=== PATIENT | female | born 1995 | race Caucasian/White ===

== ENCOUNTER 2018-03-01 08:24 | Outpatient (CLI) | payer BC | END 2018-03-01 08:25 | disposition home or self-care (01) | LOC: DTY/OP 08:24 | PROVIDERS: ATTEND Surgery | DX: I47.1 Supraventricular tachycardia (principal) | CPT/HCPCS: 97802 ==

== ENCOUNTER 2018-03-30 13:53 | Outpatient (CLI) | payer BC | END 2018-03-30 13:54 | disposition home or self-care (01) | LOC: DTY/OP 13:53 | PROVIDERS: ATTEND Surgery | DX: I47.1 Supraventricular tachycardia (principal) | CPT/HCPCS: 97802 ==

== ENCOUNTER 2018-05-01 08:34 | Outpatient (CLI) | payer BC | END 2018-05-01 08:35 | disposition home or self-care (01) | LOC: DTY/OP 08:34 | PROVIDERS: ATTEND Surgery | DX: I47.1 Supraventricular tachycardia (principal); Z98.84 Bariatric surgery status | CPT/HCPCS: 97802 ==

== ENCOUNTER 2018-05-22 18:26 | Emergency (ER) | payer BC ==
[~2018-05-22 18:26] MED LIST: ISOVUE-370 76%-LOCM 1 ML ONE
[2018-05-22 19:09] LABS: #Basophils 0.1 thou/uL (0.0-0.2); #Eosinphils 0.3 thou/uL (0.0-0.7); #Lymphocytes 2.9 thou/uL (1.20-3.40); #Monocytes 0.7 thou/uL (0.11-0.59); #Neutrophils 3.8 thou/uL (1.40-6.50); %Basophils 1.6 % (0.0-1.0); %Eosinophils 3.5 % (0.0-10.0); %Lymphocytes 37.2 % (21.0-51.0); %Monocytes 8.9 % (0.0-10.0); %Neutrophils 48.7 % (42.0-75.0); Hemoglobin 14.7 g/dL (12.0-16.0); Mean Corpuscular HGB CONC 35.2 g/dL (32.0-36.0); Mean Corpuscular Hemoglobin 30.2 pg (27.0-31.0); Mean Corpuscular Volume 85.9 fL (78.0-98.0); Mean Platelet Volume 7.6 fL (7.4-10.4); Platelet Count 251 thou/uL (130-400); RBC Distribution Width 12.7 % (11.5-14.5); Red Blood Cell (RBC) Count 4.87 mill/uL (4.20-5.40); White Blood Cell (WBC) Count 7.9 thou/uL (4.8-10.8)
[2018-05-22 19:14] LABS: Prothrombin Time 13.7 SEC (12.0-14.7)
--- NOTE | 2018-05-22 19:27 | RAD ---
RADIOGRAPH CHEST 1 VIEW: HISTORY: A 22-year-old female with nausea and hematemesis. FINDINGS: There are no air space densities, pulmonary edema, pneumothorax, or cardiomegaly. The lateral costop hrenic angles are sharp. IMPRESSION: No acute cardiopulmonary findings. clotilde [] POS: [facility]
[2018-05-22 19:29] LABS: ALT (SGPT) 15 U/L (8-55); AST (SGOT) 12 U/L (5-34); Alkaline Phosphatase 90 U/L (40-150); Anion Gap 11 mmol/L (10-20); BUN (Urea Nitrogen) 18 mg/dL (7.0-18.7); Bilirubin, Total 0.4 mg/dL (0.2-1.2); Calc. Creatinine Clearance 0 mL/min (70-130); Calcium 8.8 mg/dL (7.8-10.44); Carbon Dioxide 24 mmol/L (22-29); Chloride 107 mmol/L (98-107); Estimated GFR-MDRD 82; Globulin 2.9 g/dL (2.4-3.5); Glucose 109 mg/dL (70-105); Lipase 25 U/L (8-78); Protein, Total 6.9 g/dL (6.0-8.3); Sodium 138 mmol/L (136-145)
[2018-05-22] MEDS ORDERED: Ondansetron HCl/PF 4 MG/2 ML Vial ONE (19:29)
[2018-05-22 19:38] LABS: BHCG - Serum Negative (NEGATIVE); Pregs Control Background? CLEAR/WHITE (CLR/WHITE); Pregs Control Bar Appear? YES (CONTROL BAR)
[2018-05-22] MEDS ORDERED: Metoclopramide HCl 10 MG/2 ML VIAL ONE (20:12)
[2018-05-22] MEDS ORDERED: Dexamethasone 4 mg/ml Vial ONE (20:13)
[2018-05-22] MEDS ORDERED: Fentanyl 100 MCG/2 ML VIAL ONE (20:33)
[2018-05-22 20:34] LABS: Bilirubin Negative (Negative); Blood, Urine Negative (Negative); Clarity CLEAR (Clear); Glucose, Urine (Dipstick) Negative (Negative); Leukocyte Negative (Negative); Nitrite Negative (Negative); Protein, Urine (Dipstick) Negative (Neg-Trace); Specific Gravity, Urine 1.027 (1.002-1.036); pH, Urine 6.5 (5.0-9.0)
[2018-05-22 20:35] LABS: Pregnancy Test - Urine (BHCG) Negative (Negative); Pregu Control Background? CLEAR/WHITE (CLR/WHITE); Pregu Control Bar Appear? YES (CONTROL BAR); Specific Gravity 1.027 (1.002-1.036)
--- NOTE | 2018-05-22 20:35 | CT ---
CT BRAIN NONCONTRAST: HISTORY: A 22-year-old female with headache, nausea, and emesis. FINDINGS: There is no midline shift or any other mass effect. There is no evidence of acute intracranial hemor rhage, large cortical infarct, obstructive hydrocephalus, or extraaxial fluid collection. The calvar ium is intact. IMPRESSION: No acute intracranial findings. jn [] POS: [facility]
[2018-05-22] MEDS ORDERED: Glycopyrrolate 0.2 MG/ML 5 ML SYRINGE SLOW IVP SCH (21:00)
--- NOTE | 2018-05-22 22:13 | CT ---
CT ABDOMEN WITH CONTRAST CT PELVIS WITH CONTRAST: 05/22/2018 9:31 p.m. HISTORY: A 22-year-old female with generalized abdominal pain. TECHNIQUE: IV injection of iodinated contrast media: Administered. Oral contrast media: Not administered. FINDINGS: Liver: Normal. Spleen: Normal. Pancreas: Normal. Adrenals: Normal. Kidneys: Normal. Ureters: No dilation. Bladder: No pathology identified. Abdominal aorta: No aneurysm or dissection. Small bowel: No dilation. Colon: No adjacent fat stranding. Appendix: Normal. Free air: None. Free fluid: None. IMPRESSION: Normal. clotilde [] POS: [facility]
== END 2018-05-22 22:30 | disposition home or self-care (01) ==
LOC: ERS 18:26
DX: K22.6 Gastro-esophageal laceration-hemorrhage syndrome (principal); R51 Headache; F41.9 Anxiety disorder, unspecified; F32.9 Major depressive disorder, single episode, unspecified; Z79.899 Other long term (current) drug therapy
CPT/HCPCS: 36415; 70450; 71045; 74177; 80053; 81003; 81025; 83690; 84703; 85025; 85610; 86850; 86900; 86901; 93005; 96361; 96365; 96366; 96375; J1100; J2405; J2765; J3010

== ENCOUNTER 2018-05-30 15:00 | Inpatient (IN) | payer BC ==
[2018-06-01] MEDS ORDERED: Heparin 5,000 UNITS/ML VIAL ONE (08:58)
[2018-06-01] MEDS ORDERED: CEFAZOLIN/Water 2 GM/20 ML SYRINGE ONE (08:58)
[2018-06-01] MEDS ORDERED: Bupivacaine/Epinephrine 0.25% 30 ML VIAL ONE (09:16)
[2018-06-01] MEDS ORDERED: Fentanyl 100 MCG/2 ML VIAL ONE (09:32)
[2018-06-01] MEDS ORDERED: Midazolam HCl 2 mg/2 ml Vial ONE ×2 (09:32)
[2018-06-01] MEDS ORDERED: HYDROmorphone 2 MG/ML VIAL ONE ×2 (09:33→11:05)
[2018-06-01] MEDS ORDERED: Lidocaine 1% (PF) 30 ML VIAL ONE (09:33)
[2018-06-01] MEDS ORDERED: HYDROmorphone 10 mg/100 ml CADD IVPB PRN (09:37)
[2018-06-01] MEDS ORDERED: diphenhydrAMINE 25 MG CAP PO PRN (09:37)
[2018-06-01] MEDS ORDERED: Ondansetron HCl/PF 4 MG/2 ML Vial IVP PRN ×3 (09:37→10:43)
[2018-06-01] MEDS ORDERED: HYDROmorphone 2 MG/ML VIAL SLOW IVP PRN (09:37)
[2018-06-01] MEDS ORDERED: diphenhydrAMINE 50 MG/ML VIAL IM PRN (09:37)
[2018-06-01] MEDS ORDERED: Promethazine HCl 25 MG/ML VIAL SLOW IVP PRN (09:37)
[2018-06-01] MEDS ORDERED: Zolpidem Tartrate 5 MG TAB PO PRN (09:37)
[2018-06-01] MEDS ORDERED: Promethazine HCl 25 MG/ML VIAL IM PRN ×3 (09:37→10:43)
[2018-06-01] MEDS ORDERED: Naloxone HCl 0.4 mg/ml Vial IV PRN (09:37)
[2018-06-01] MEDS ORDERED: Communication Order-Pharmacy FS SCH (09:45)
[2018-06-01] MEDS ORDERED: hydrALAZINE 20 MG/ML VIAL SLOW IVP PRN (10:43)
[2018-06-01] MEDS ORDERED: Dextrose 5% in Water 1,000 ML IV PRN (10:43)
[2018-06-01] MEDS ORDERED: Dextrose 50% Abboject 50 ML SYRINGE SLOW IVP PRN (10:43)
[2018-06-01] MEDS ORDERED: Hydrocodone-Acetamin 15 ML UDCUP PO PRN (10:43)
[2018-06-01] MEDS ORDERED: diphenhydrAMINE 50 MG/ML VIAL IVP PRN (10:43)
[2018-06-01] MEDS ORDERED: Lorazepam 2 MG/ML VIAL SLOW IVP PRN (10:45)
[2018-06-01] MEDS ORDERED: Dexamethasone 20 MG/5 ML VIAL ONE (11:00)
[2018-06-01] MEDS ORDERED: PHENYLEPHRINE-NS 100 MCG/ML 10 ML SYRINGE ONE (11:00)
[2018-06-01] MEDS ORDERED: Ketorolac Tromethamine 30 MG/ML VIAL ONE (11:00)
[2018-06-01] MEDS ORDERED: Lidocaine 1% PF 5 ML VIAL ONE (11:00)
[2018-06-01] MEDS ORDERED: ePHEDrine/0.9% NaCl/PF SYRINGE 50 mg/10 ml ONE (11:00)
[2018-06-01] MEDS ORDERED: Ondansetron HCl/PF 4 MG/2 ML Vial ONE ×2 (11:00→11:05)
[2018-06-01] MEDS ORDERED: PROPOFOL 200 MG/20 ML VIAL ONE (11:00)
[2018-06-01] MEDS ORDERED: Glycopyrrolate 0.2 MG/ML 5 ML SYRINGE ONE (11:00)
[2018-06-01] MEDS ORDERED: Promethazine HCl 25 MG/ML VIAL ONE (11:13)
[2018-06-01 15:18] VITALS: BMI 35.5
[2018-06-01] MEDS: Ketorolac Tromethamine 30 MG/ML VIAL IVP SCH ×3 (16:25→23:33)
[2018-06-01] MEDS: Acetaminophen 1,000 MG in Premix Bag 1 BAG IVPB SCH ×3 (16:25→23:34)
[2018-06-01] MEDS: D5 1/2 NS w/20 mEq KCL 1,000 ML IV SCH ×2 (16:25→23:35)
[2018-06-01] MEDS: CEFAZOLIN/Water 2 GM/20 ML SYRINGE SLOW IVP SCH (18:39)
[2018-06-02] MEDS: CEFAZOLIN/Water 2 GM/20 ML SYRINGE SLOW IVP SCH (01:43)
[2018-06-02] MEDS: diphenhydrAMINE 50 MG/ML VIAL IVP PRN ×5 (02:10→15:56)
[2018-06-02] MEDS ORDERED: Clopidogrel Bisulfate 75 MG TAB ONE (05:12)
[2018-06-02] MEDS: Ketorolac Tromethamine 30 MG/ML VIAL IVP SCH ×2 (05:18→11:15)
[2018-06-02] MEDS: Acetaminophen 1,000 MG in Premix Bag 1 BAG IVPB SCH ×2 (05:19→11:05)
[2018-06-02] MEDS: D5 1/2 NS w/20 mEq KCL 1,000 ML IV SCH ×2 (05:33→11:05)
[2018-06-02 05:52] LABS: #Lymphocytes 1.8 thou/uL (1.20-3.40); #Neutrophils 9.1 thou/uL (1.40-6.50); %Eosinophils 0.1 % (0.0-10.0); %Lymphocytes 15.2 % (21.0-51.0); %Monocytes 8.4 % (0.0-10.0); %Neutrophils 76.3 % (42.0-75.0); Hemoglobin 12.7 g/dL (12.0-16.0); Mean Corpuscular HGB CONC 33.5 g/dL (32.0-36.0); Mean Corpuscular Hemoglobin 29.6 pg (27.0-31.0); Mean Corpuscular Volume 88.5 fL (78.0-98.0); Mean Platelet Volume 7.8 fL (7.4-10.4); Platelet Count 285 thou/uL (130-400); RBC Distribution Width 12.6 % (11.5-14.5); Red Blood Cell (RBC) Count 4.28 mill/uL (4.20-5.40); White Blood Cell (WBC) Count 11.9 thou/uL (4.8-10.8)
[2018-06-02 05:59] LABS: Anion Gap 13 mmol/L (10-20); BUN (Urea Nitrogen) 7 mg/dL (7.0-18.7); Calc. Creatinine Clearance 184 mL/min (70-130); Calcium 8.6 mg/dL (7.8-10.44); Carbon Dioxide 24 mmol/L (22-29); Chloride 103 mmol/L (98-107); Estimated GFR-MDRD Greater than 90; Glucose 103 mg/dL (70-105); Potassium 3.5 mmol/L (3.5-5.1); Sodium 136 mmol/L (136-145)
[2018-06-02] MEDS ORDERED: Enoxaparin Sodium 40 MG/0.4 ML SYRINGE SC SCH (09:00)
[2018-06-02] MEDS ORDERED: Pantoprazole 40 MG VIAL IVP SCH (09:00)
--- NOTE | 2018-06-02 10:30 | RAD ---
ESOPHAGRAM: HISTORY: Bariatric surgery. FINDINGS: Single column contrast evaluation shows postoperative changes of the stomach consistent with gastric sleeve procedure. There is no evidence of obstruction or leak. Fluoro time 0.2 minutes. POS: [facility]
[2018-06-02 17:12] VITALS: BP 121/74; TEMP 98.4
--- NOTE | 2018-06-02 17:49 | DIS ---
DISCHARGE DIAGNOSIS: Morbid obesity. PROCEDURES DURING ADMISSION: Laparoscopic sleeve gastrectomy, intraoperative esophagogastroscopy, po stoperative Gastrografin swallow. HOSPITAL COURSE: The patient was admitted, taken to the operating room and underwent a laparoscopic sleeve gastrectomy. Postoperatively, she has done well. Her x-ray was fine. She is tolerating liqu ids well. She is discharged home on hydrocodone and Zofran. She will follow up with me in 2 weeks.
--- NOTE | 2018-06-05 13:49 | OP ---
DATE OF PROCEDURE: 06/01/2018 PREOPERATIVE DIAGNOSIS: Morbid obesity. SURGEON: David Mauricio M.D. PROCEDURE: Laparoscopic sleeve gastrectomy, esophagogastroscopy. INDICATIONS: The patient is a 22-year-old female, morbidly obese, who has attempted multiple weight loss programs without success. FINDINGS: A 38-Togolese bougie used. PROCEDURE IN DETAIL: After informed consent was obtained, the patient was taken to the operating honorio m and given general endotracheal anesthesia. She was placed in the supine position. The abdomen was prepped and draped in usual fashion. Local anesthesia infiltrated subcutaneously and deep. A 12 mm incision was performed approximately 8 inches above the xiphoid slightly to the left. Veress needle inserted. Drop test performed. Pneumoperitoneum was created to a volume of 2 liters of carbon diox paresh. Utilizing a bladeless 12 mm trocar and 0 degree laparoscope, direct visual entry in the abdomin al cavity was performed. Pneumoperitoneum was created to a pressure of 15 mmHg and the patient place d in steep reverse Trendelenburg position. Nathansen liver retractor inserted. Left lobe of liver r etracted superiorly. Pylorus identified a 12 mm port placed on the right beneath it and two 12s plac ed left subcostal. The omentum was taken off the greater curvature 5 cm from the pylorus utilizing t he LigaSure. Short gastrics divided with the LigaSure and left crura defined with LigaSure. A 38-Fr ench bougie inserted directed into the antrum. The linear 60 mm green load stapler used to divide th e antrum to the bougie, gold load along the bougie, and a series of blues through the angle of His. Intraoperative endoscopy was performed. The video endoscope inserted under direct vision and advance d into the sleeve. Staple line inspected. There was no bleeding. Staple line then tested by inflat ing the new stomach with pressurized air under water. There was no air leak. Stomach decompressed. Scope removed. The remnant stomach removed from the abdomen through the left lateral port site. Th e fascia closed with 0 Vicryl suture and the GraNee needle. Trocars and retractors removed. The ski n closed with interrupted 4-0 Rapide. Dermabond applied. The patient tolerated the procedure well a nd was transferred to recovery in good condition. Sponge and needle count verified correct x2.
== END 2018-06-02 16:56 | disposition home or self-care (01) | DRG 621 ==
LOC: SURG A 06-01 07:53 → SJJU 06-01 12:15 → SURG A 06-01 12:29 → 2NO 06-01 14:30
PROVIDERS: ADMIT Surgery; ATTEND Surgery
PROC: 0DB64Z3 Excision of Stomach, Percutaneous Endoscopic Approach, Vertical (ICD-10-PCS; principal; 2018-06-01)
PROC: 0DJ08ZZ Inspection of Upper Intestinal Tract, Via Natural or Artificial Opening Endoscopic (ICD-10-PCS; 2018-06-01)
DX: E66.01 Morbid (severe) obesity due to excess calories (principal); Z68.35 Body mass index [BMI] 35.0-35.9, adult
CPT/HCPCS: 36415; 74241; 80048; 83036; 85025; 88307; 88312; 93005; 93010; 94640; C9113; J0131; J1100; J1170; J1200; J1644; J1650; J1885; J2001; J2250; J2405; J2550; J2704; J3010; J7620

== ENCOUNTER 2018-05-31 15:16 | Outpatient (CLI) | payer BC | END 2018-05-31 15:17 | disposition home or self-care (01) | LOC: LABBT 15:16 | PROVIDERS: ATTEND Surgery | DX: Z01.818 Encounter for other preprocedural examination (principal); E66.01 Morbid (severe) obesity due to excess calories | CPT/HCPCS: 83036; 93005; 93010 ==

== ENCOUNTER 2018-06-03 17:04 | Emergency (ER) | payer BC ==
[~2018-06-03 17:04] MED LIST changes: -ISOVUE-370 76%-LOCM 1 ML ONE; +Iopamidol 370 76% 100 ML VIAL ONE
[2018-06-03] MEDS ORDERED: Ondansetron HCl/PF 4 MG/2 ML Vial ONE ×2 (17:27→19:47)
[2018-06-03 17:43] LABS: Eosinophils 8 % (0-10); Hemoglobin 13.1 g/dL (12.0-16.0); Lymphocytes 23 % (21-51); MDiff Complete? YES; Mean Corpuscular HGB CONC 33.6 g/dL (32.0-36.0); Mean Corpuscular Hemoglobin 28.7 pg (27.0-31.0); Mean Corpuscular Volume 85.5 fL (78.0-98.0); Mean Platelet Volume 8.4 fL (7.4-10.4); Monocytes 2 % (0-10); Neutrophil 63 % (42-75); PLT Morphology Comment Appears Adequate; Platelet Count 224 thou/uL (130-400); RBC Distribution Width 11.7 % (11.5-14.5); Reactive Lymphocytes 4 % (0-10); Red Blood Cell (RBC) Count 4.55 mill/uL (4.20-5.40); White Blood Cell (WBC) Count 10.1 thou/uL (4.8-10.8)
[2018-06-03 17:49] LABS: ALT (SGPT) 25 U/L (8-55); AST (SGOT) 19 U/L (5-34); Albumin 3.7 g/dL (3.5-5.0); Alkaline Phosphatase 69 U/L (40-150); Anion Gap 13 mmol/L (10-20); BUN (Urea Nitrogen) 6 mg/dL (7.0-18.7); Bilirubin, Total 0.9 mg/dL (0.2-1.2); Calc. Creatinine Clearance 0 mL/min (70-130); Calcium 9.1 mg/dL (7.8-10.44); Carbon Dioxide 25 mmol/L (22-29); Chloride 104 mmol/L (98-107); Estimated GFR-MDRD Greater than 90; Globulin 2.8 g/dL (2.4-3.5); Glucose 82 mg/dL (70-105); Lipase 75 U/L (8-78); Potassium 3.7 mmol/L (3.5-5.1); Protein, Total 6.5 g/dL (6.0-8.3); Sodium 138 mmol/L (136-145)
[2018-06-03 19:03] LABS: Bilirubin Negative (Negative); Blood, Urine Trace (Negative); Clarity Slightly Cloudy (Clear); Glucose, Urine (Dipstick) Negative (Negative); Leukocyte Negative (Negative); Nitrite Negative (Negative); Protein, Urine (Dipstick) Negative (Neg-Trace); Specific Gravity, Urine 1.015 (1.005-1.030)
[2018-06-03 19:05] LABS: Pregnancy Test - Urine (BHCG) Negative (Negative); Pregu Control Background? CLEAR/WHITE (CLR/WHITE); Pregu Control Bar Appear? YES (CONTROL BAR); Specific Gravity 1.015 (1.002-1.036)
[2018-06-03 19:06] LABS: Bacteria/HPF 1+ HPF (None Seen); RBC/HPF 0-3 HPF (0-3); WBC/HPF 0-3 HPF (0-3)
[2018-06-03] MEDS ORDERED: Ketorolac Tromethamine 30 MG/ML VIAL ONE (19:47)
--- NOTE | 2018-06-03 19:55 | CT ---
CT ABDOMEN AND PELVIS WITH CONTRAST 06/03/18 HISTORY: Abdominal pain. recent gastric sleeve. COMPARISON: CT abdomen and pelvis 05/22/18. Lung bases are clear. No pericardial effusion. Recent gastric postoperative changes. No free fluid in the abdomen or pelvis. The appendix is visualized and is normal. No dilated loops of large or small bowel. Kidneys are unremarkable. The liver is unremarkable. Gallbl adder is unremarkable. No intrahepatic or extrahepatic biliary dilatation. Pancreas is unremarkable. Aortoiliac contour is normal. IMPRESSION: Expected postoperative changes. No acute intra-abdominal abnormality. POS: [facility]
== END 2018-06-03 20:58 | disposition home or self-care (01) ==
LOC: SCSER 17:04
DX: G89.18 Other acute postprocedural pain (principal); R10.9 Unspecified abdominal pain; K91.870 Postprocedural hematoma of a digestive system organ or structure following a digestive system procedure; I47.1 Supraventricular tachycardia; F41.9 Anxiety disorder, unspecified; F32.9 Major depressive disorder, single episode, unspecified
CPT/HCPCS: 36415; 74177; 80053; 81003; 81015; 81025; 83605; 83690; 85025; 96361; 96374; 96375; 96376; J1885; J2270; J2405

== ENCOUNTER 2018-06-07 11:20 | Day surgery (SDC) | payer BC ==
[2018-06-07] MEDS ORDERED: Multivit, Adult Inj 10 ML VIAL ONE (11:49)
[2018-06-07] MEDS ORDERED: Ondansetron HCl/PF 4 MG/2 ML Vial ONE (12:40)
== END 2018-06-08 13:50 | disposition home or self-care (01) ==
LOC: SCSER/OP 11:20
PROVIDERS: ATTEND Surgery
DX: Z29.8 Encounter for other specified prophylactic measures (principal)
CPT/HCPCS: J2405

== ENCOUNTER 2018-06-19 22:27 | Emergency (ER) | payer BC ==
[2018-06-19] MEDS ORDERED: Ondansetron HCl/PF 4 MG/2 ML Vial ONE (22:52)
[2018-06-19] MEDS ORDERED: Multivit, Adult Inj 10 ML VIAL ONE (22:55)
[2018-06-19] MEDS ORDERED: Metoclopramide HCl 10 MG/2 ML VIAL ONE (23:01)
[2018-06-19] MEDS ORDERED: Famotidine/PF 20 mg/2ml Vial ONE (23:02)
[2018-06-19 23:24] LABS: #Eosinphils 0.1 thou/uL (0.0-0.7); #Lymphocytes 2.3 thou/uL (1.20-3.40); #Monocytes 0.5 thou/uL (0.11-0.59); #Neutrophils 2.9 thou/uL (1.40-6.50); %Basophils 0.6 % (0.0-1.0); %Eosinophils 2.5 % (0.0-10.0); %Lymphocytes 39.3 % (21.0-51.0); %Monocytes 8.7 % (0.0-10.0); %Neutrophils 48.9 % (42.0-75.0); Hemoglobin 13.4 g/dL (12.0-16.0); Mean Corpuscular HGB CONC 34.9 g/dL (32.0-36.0); Mean Corpuscular Hemoglobin 28.9 pg (27.0-31.0); Mean Corpuscular Volume 82.9 fL (78.0-98.0); Mean Platelet Volume 9.4 fL (7.4-10.4); Platelet Count 204 thou/uL (130-400); RBC Distribution Width 11.2 % (11.5-14.5); Red Blood Cell (RBC) Count 4.63 mill/uL (4.20-5.40); White Blood Cell (WBC) Count 5.9 thou/uL (4.8-10.8)
[2018-06-19 23:32] LABS: BHCG - Serum Negative (NEGATIVE); Pregs Control Background? CLEAR/WHITE (CLR/WHITE); Pregs Control Bar Appear? YES (CONTROL BAR)
[2018-06-19 23:40] LABS: ALT (SGPT) 89 U/L (8-55); AST (SGOT) 52 U/L (5-34); Albumin 4.2 g/dL (3.5-5.0); Alkaline Phosphatase 87 U/L (40-150); Anion Gap 15 mmol/L (10-20); BUN (Urea Nitrogen) 15 mg/dL (7.0-18.7); Bilirubin, Total 0.8 mg/dL (0.2-1.2); Calc. Creatinine Clearance 0 mL/min (70-130); Calcium 9.6 mg/dL (7.8-10.44); Carbon Dioxide 23 mmol/L (22-29); Chloride 105 mmol/L (98-107); Estimated GFR-MDRD 83; Globulin 2.9 g/dL (2.4-3.5); Glucose 75 mg/dL (70-105); Lipase 75 U/L (8-78); Magnesium 2.2 mg/dL (1.6-2.6); Phosphorus 3.1 mg/dL (2.3-4.7); Potassium 3.7 mmol/L (3.5-5.1); Protein, Total 7.1 g/dL (6.0-8.3); Sodium 139 mmol/L (136-145)
[2018-06-20] MEDS ORDERED: Acetaminophen 500 MG TAB ONE (01:05)
== END 2018-06-20 03:50 | disposition home or self-care (01) ==
LOC: SCSER 22:27
DX: E86.0 Dehydration (principal); R10.12 Left upper quadrant pain; I47.1 Supraventricular tachycardia; F32.9 Major depressive disorder, single episode, unspecified; F41.9 Anxiety disorder, unspecified; J45.909 Unspecified asthma, uncomplicated
CPT/HCPCS: 80053; 83690; 83735; 84100; 84703; 85025; J2405; J2765; J7620; S0028

== ENCOUNTER 2018-06-20 21:17 | Inpatient (IN) | payer BC ==
[2018-06-20] MEDS ORDERED: Metoclopramide HCl 10 MG/2 ML VIAL ONE (22:43)
[2018-06-20] MEDS ORDERED: Ondansetron HCl/PF 4 MG/2 ML Vial ONE (22:43)
[2018-06-20 22:57] LABS: #Basophils 0.1 thou/uL (0.0-0.2); #Eosinphils 0.1 thou/uL (0.0-0.7); #Lymphocytes 1.7 thou/uL (1.20-3.40); #Monocytes 0.4 thou/uL (0.11-0.59); #Neutrophils 2.9 thou/uL (1.40-6.50); %Basophils 1.4 % (0.0-1.0); %Eosinophils 2.6 % (0.0-10.0); %Lymphocytes 32.7 % (21.0-51.0); %Neutrophils 55.2 % (42.0-75.0); Hemoglobin 12.8 g/dL (12.0-16.0); Mean Corpuscular HGB CONC 34.5 g/dL (32.0-36.0); Mean Corpuscular Hemoglobin 29.9 pg (27.0-31.0); Mean Corpuscular Volume 86.8 fL (78.0-98.0); Mean Platelet Volume 9.2 fL (7.4-10.4); Platelet Count 200 thou/uL (130-400); RBC Distribution Width 12.5 % (11.5-14.5); Red Blood Cell (RBC) Count 4.29 mill/uL (4.20-5.40); White Blood Cell (WBC) Count 5.2 thou/uL (4.8-10.8)
[2018-06-20] MEDS ORDERED: diphenhydrAMINE 50 MG/ML VIAL IVP SCH (23:00)
[2018-06-20 23:16] LABS: ALT (SGPT) 70 U/L (8-55); AST (SGOT) 39 U/L (5-34); Albumin 3.8 g/dL (3.5-5.0); Alkaline Phosphatase 80 U/L (40-150); Anion Gap 13 mmol/L (10-20); BUN (Urea Nitrogen) 6 mg/dL (7.0-18.7); Bilirubin, Total 0.6 mg/dL (0.2-1.2); Calc. Creatinine Clearance 0 mL/min (70-130); Calcium 9.2 mg/dL (7.8-10.44); Carbon Dioxide 20 mmol/L (22-29); Chloride 108 mmol/L (98-107); Estimated GFR-MDRD Greater than 90; Globulin 2.7 g/dL (2.4-3.5); Glucose 75 mg/dL (70-105); Lipase 59 U/L (8-78); Potassium 3.9 mmol/L (3.5-5.1); Protein, Total 6.5 g/dL (6.0-8.3); Sodium 137 mmol/L (136-145)
[2018-06-21 00:01] LABS: Bilirubin Negative (Negative); Blood, Urine Negative (Negative); Clarity CLEAR (Clear); Glucose, Urine (Dipstick) Negative (Negative); Leukocyte Negative (Negative); Nitrite Negative (Negative); Protein, Urine (Dipstick) Negative (Neg-Trace); Specific Gravity, Urine 1.005 (1.002-1.036); pH, Urine 5.5 (5.0-9.0)
[2018-06-21] MEDS ORDERED: Ondansetron HCl/PF 4 MG/2 ML Vial IVP PRN (01:19)
[2018-06-21] MEDS ORDERED: Ondansetron ODT 4 MG TAB SL PRN (01:19)
[2018-06-21] MEDS ORDERED: Acetaminophen 325 MG TAB PO PRN (01:19)
[2018-06-21] MEDS ORDERED: Acetaminophen 650 MG in Premix Bag 1 BAG IVPB PRN (01:21)
[2018-06-21] MEDS: Lactated Ringer's 1,000 ML IV SCH ×2 (01:55→09:57)
[2018-06-21 07:21] VITALS: BMI 32.0
[2018-06-21] MEDS ORDERED: Multivit, Adult Inj 10 ML VIAL IV SCH (07:45)
[2018-06-21] MEDS ORDERED: Multivitamins, Adult 10 ML in Sodium Chloride 0.9% 500 ML IV SCH (08:00)
[2018-06-21] MEDS: Ketorolac Tromethamine 30 MG/ML VIAL IVP PRN ×2 (09:57→19:11)
[2018-06-21] MEDS: Promethazine HCl 25 MG/ML VIAL IM/IV PRN (10:05)
[2018-06-21] MEDS ORDERED: Fat Emulsion 250 ML IVPB PRN (11:51)
[2018-06-21] MEDS: D5W-AA 4.25% with LYTES 1,000 ML IV SCH ×2 (12:39→20:58)
[2018-06-21] MEDS ORDERED: Iopamidol 300 61% 30 ML VIAL ONE (12:56)
--- NOTE | 2018-06-21 14:00 | RAD ---
BARIUM SWALLOW ESOPHAGRAM 06/21/18 HISTORY: Patient is two weeks status post gastric sleeve/bariatric surgery. Patient is having nausea. EXPOSURE: 0.9 minutes. 28.067 Gy*cm2. FINDINGS: Initial supervisor ornamental ironworking chest radiograph demonstrates normal cardiac silhouette. The lungs and pleural spaces a re clear. No pneumothorax or osseous abnormalities. The patient is administered a total of 30 mL of g astrografin. Gastrografin passes without difficulty. There is no evidence of leak of extravasation. G astrografin opacifies multiple loops of small bowel. Postprocedure supine and upright radiograph demonstrate gastrografin in the residual stomach. Multipl e contrast filled loops of small bowel are noted. No evidence of leak of extravasation. No evidence o f obstruction. IMPRESSION: No evidence of leak or extravasation. POS: [facility]
[2018-06-21] MEDS: Metoclopramide HCl 10 MG/2 ML VIAL IVP SCH ×2 (14:01→20:58)
[2018-06-22] MEDS: Metoclopramide HCl 10 MG/2 ML VIAL IVP SCH (05:23)
[2018-06-22] MEDS: D5W-AA 4.25% with LYTES 1,000 ML IV SCH (05:25)
[2018-06-22 08:05] VITALS: BP 103/57; TEMP 98.2
[2018-06-22] MEDS: Promethazine HCl 25 MG/ML VIAL IM/IV PRN (09:05)
--- NOTE | 2018-06-22 11:55 | DIS ---
DATE OF ADMISSION: 06/20/2018 DATE OF DISCHARGE: 06/22/2018 DISCHARGE DIAGNOSES: Nausea, vomiting and dehydration. PROCEDURES DURING ADMISSION: Upper GI series. HOSPITAL COURSE: The patient was admitted, given IV fluids and multivitamins. A barium swallow was done, showed no abnormality. It was noted that she had been on Reglan prior to her sleeve and she santamaria s not been taking that, so we started her back on the IV Reglan and she feels 100% better. She is to lerating liquids. She is ready to go home, she says. DISCHARGE MEDICATIONS: Reglan 10 mg p.o. t.i.d. before meals and Phenergan 25 p.o. q.4 p.r.n. FOLLOWUP: Follow up with me in 2 weeks.
--- NOTE | 2018-06-23 14:04 | HP ---
CHIEF COMPLAINT: Nausea, vomiting. HISTORY OF PRESENT ILLNESS: This is a 22-year-old female who underwent a sleeve gastrectomy on 06/01. She has been to the ER 4 times since then, the , , the and 2nd. She complains of dehydration, nausea, headache, left-sided abdominal pain and bilious vomiting. She had a small lizz l movement yesterday. She denies hiccups, shoulder pain. Workup has all been negative. PAST MEDICAL HISTORY: Depression, ADHD, asthma, paroxysmal SVT. PAST SURGICAL HISTORY: Cardiac ablation, right breast cyst excision. ALLERGIES: METOPROLOL and ADHESIVES. MEDICATIONS: Prior to the surgery she was on Zofran, Reglan, Phenergan, Singulair, Vyvanse. SOCIAL HISTORY: She is single. Occasional alcohol, no tobacco. PHYSICAL EXAMINATION: VITAL SIGNS: Temperature 98.1, pulse 61, blood pressure 99/68. GENERAL: She is awake, alert, does not appear to be in any distress. HEENT: No jaundice. LUNGS: Clear. HEART: Regular rate and rhythm. ABDOMEN: Soft, nondistended, nontender. Incisions are healing well. There are no hernias. There i s no evidence of infection. LABORATORY AND X-RAY FINDINGS: Her white count 5.2, H&H 12 and 37, platelet count 200. PT is 13. E lectrolytes are fine. Creatinine 0.7, BUN is 6. She had a CT scan that was unremarkable. PLAN: IV vitamins, Reglan, Phenergan, Toradol. We will keep her n.p.o. for now.
== END 2018-06-22 10:00 | disposition home or self-care (01) | DRG 641 ==
LOC: ERS 21:17 → OBSVTOIN 23:36 → T4-B 23:36
PROVIDERS: ADMIT Surgery; ATTEND Surgery
DX: E86.0 Dehydration (principal); R11.2 Nausea with vomiting, unspecified
CPT/HCPCS: 36415; 74220; 80053; 81003; 83690; 83735; 84100; 84703; 85025; 96365; 96366; 96375; A4216; J1200; J1885; J2405; J2550; J2765; J7050; J7620; S0028

== ENCOUNTER 2018-12-31 08:58 | Day surgery (SDC) | payer BC ==
[2018-12-31] MEDS ORDERED: Levofloxacin 500 mg/D5W 100 ml Premix Bag ONE (09:44)
[2018-12-31] MEDS ORDERED: Fentanyl 100 MCG/2 ML VIAL ONE ×2 (09:44→09:53)
[2018-12-31] MEDS ORDERED: Bupivacaine HCl 0.5%/Epinephrine 1:200,000/PF 30 ml Vial ONE (09:50)
[2018-12-31] MEDS ORDERED: Famotidine/PF 20 mg/2ml Vial ONE (09:54)
[2018-12-31] MEDS ORDERED: HYDROmorphone 2 MG/ML VIAL SLOW IVP PRN (10:47)
[2018-12-31] MEDS ORDERED: Meperidine HCl/PF 25 MG/ML VIAL SLOW IVP PRN (10:47)
[2018-12-31] MEDS ORDERED: Promethazine HCl 25 MG/ML VIAL ONE (11:17)
[2018-12-31] MEDS ORDERED: HYDROcodone/Acetaminophen 5/325 mg Tablet ONE (12:16)
[2018-12-31] MEDS ORDERED: Ondansetron PF 4 MG/2 ML Vial ONE (15:36)
[2018-12-31] MEDS ORDERED: Lidocaine 1% PF 5 ML VIAL ONE (15:36)
[2018-12-31] MEDS ORDERED: Ketorolac Tromethamine 30 MG/ML VIAL ONE (15:36)
[2018-12-31] MEDS ORDERED: Dexamethasone 20 MG/5 ML VIAL ONE (15:36)
[2018-12-31] MEDS ORDERED: Glycopyrrolate 0.2 MG/ML 5 ML SYRINGE ONE (15:36)
[2018-12-31] MEDS ORDERED: PROPOFOL 200 MG/20 ML VIAL ONE (15:36)
[2018-12-31] MEDS ORDERED: Rocuronium Bromide 10 MG/ML (10ML VIAL) ONE (15:36)
--- NOTE | 2019-01-01 11:04 | OP ---
DATE OF PROCEDURE: 12/31/2018 PREOPERATIVE DIAGNOSIS: Severe biliary colic. SURGEON: David Mauricio MD PROCEDURE PERFORMED: Laparoscopic cholecystectomy. INDICATIONS: The patient is a 23-year-old female, recent weight loss after sleeve. She has developed a 4-day history of severe intermittent right upper quadrant pain radiating to back. Ultrasound shows cholelithiasis findings, small caliber cystic duct, large stones. DESCRIPTION OF PROCEDURE: After informed consent was obtained, patient was taken to the operating room and given general endotracheal anesthesia. She was placed in supine position. Abdomen was prepped and draped in usual fashion. Local anesthesia infiltrated subcutaneously and deep and subumbilical incision was performed. Subcu divided sharply, the fascia was grasped, two stay sutures of 0 Vicryl placed through side of midline. Midline incised. Digital palpation revealed no local adhesions. A blunt 12 mm trocar inserted. Pneumoperitoneum was created to a pressure of 15 mmHg. A 0 degree laparoscope inserted and three 5 mm ports were placed subcostally. The gallbladder was grasped and advanced superiorly, peritoneum divided and open to allow dissection of the cystic duct artery and critical view. The artery and duct were triply ligated with hemoclips and divided. The gallbladder removed from its fossa utilizing electrocautery, removed from the abdomen through the umbilical port. Hemostasis assured. Trocars and retractors removed. Fascia closed with interrupted 0 Vicryl suture. The skin closed with interrupted 4-0 Rapide. Dermabond applied. The patient tolerated the procedure well, transferred to Recovery in good condition. Sponge and needle count verified correct x2. Job ID: [id number]
== END 2018-12-31 12:55 | disposition home or self-care (01) ==
LOC: SDC 08:58
PROVIDERS: ATTEND Surgery
PROC: 0FT44ZZ Resection of Gallbladder, Percutaneous Endoscopic Approach (ICD-10-PCS; principal; 2018-12-31)
DX: K80.10 Calculus of gallbladder with chronic cholecystitis without obstruction (principal); Z79.3 Long term (current) use of hormonal contraceptives; Z88.8 Allergy status to other drugs, medicaments and biological substances; Z91.048 Other nonmedicinal substance allergy status; Z98.84 Bariatric surgery status
CPT/HCPCS: 88304; J0131; J0670; J1100; J1885; J1956; J2001; J2405; J2550; J2704; J3010; S0028

== ENCOUNTER 2019-12-01 00:21 | Inpatient (IN) | payer BC ==
[2019-12-01 01:09] LABS: #Eosinphils 0.5 thou/uL (0.0-0.7); #Lymphocytes 2.5 thou/uL (1.20-3.40); #Monocytes 0.6 thou/uL (0.11-0.59); #Neutrophils 2.7 thou/uL (1.40-6.50); %Basophils 0.5 % (0.0-1.0); %Eosinophils 7.3 % (0.0-10.0); %Lymphocytes 39.8 % (21.0-51.0); %Monocytes 9.3 % (0.0-10.0); %Neutrophils 43.2 % (42.0-75.0); Hemoglobin 12.8 g/dL (12.0-16.0); Mean Corpuscular HGB CONC 33.8 g/dL (32.0-36.0); Mean Corpuscular Hemoglobin 30.4 pg (27.0-31.0); Mean Corpuscular Volume 90.1 fL (78.0-98.0); Mean Platelet Volume 8.3 fL (7.4-10.4); Platelet Count 227 thou/uL (130-400); RBC Distribution Width 12.1 % (11.5-14.5); Red Blood Cell (RBC) Count 4.19 mill/uL (4.20-5.40); White Blood Cell (WBC) Count 6.3 thou/uL (4.8-10.8)
[2019-12-01 01:29] LABS: Acetaminophen Less than 6.0 mcg/mL (10.0-30.0); Alcohol Less than 10 mg/dL (Less than 10); Salicylate Less than 8.0 mg/dL (15.0-30.0)
[2019-12-01 01:36] LABS: ALT (SGPT) 9 U/L (8-55); AST (SGOT) 13 U/L (5-34); Albumin 3.9 g/dL (3.5-5.0); Alkaline Phosphatase 65 U/L (40-110); Anion Gap 12 mmol/L (10-20); BUN (Urea Nitrogen) 14 mg/dL (7.0-18.7); Bilirubin, Total 0.3 mg/dL (0.2-1.2); Calc. Creatinine Clearance 0 mL/min (70-130); Calcium 8.9 mg/dL (7.8-10.44); Carbon Dioxide 27 mmol/L (22-29); Chloride 107 mmol/L (98-107); Estimated GFR-MDRD 84; Globulin 2.3 g/dL (2.4-3.5); Glucose 63 mg/dL (70-105); Protein, Total 6.2 g/dL (6.0-8.3); Sodium 142 mmol/L (136-145)
[2019-12-01] MEDS ORDERED: Atropine Sulfate 1 mg/10 ml Syringe ONE (01:57)
[2019-12-01] MEDS ORDERED: Ondansetron PF 4 MG/2 ML Vial IVP PRN (03:31)
[2019-12-01] MEDS ORDERED: Ondansetron ODT 4 MG TAB SL PRN (03:31)
[2019-12-01 03:39] VITALS: BMI 23.9
[2019-12-01] MEDS: Sodium Chloride 0.9% 1,000 ML IV SCH ×2 (04:23→13:01)
[2019-12-01] MEDS ORDERED: Ondansetron ODT 4 MG TAB PO PRN (08:19)
[2019-12-01] MEDS ORDERED: LINZESS 145 MG PO SCH (09:00)
[2019-12-01] MEDS ORDERED: FLUoxetine HCl 20 MG CAP PO SCH (09:00)
[2019-12-01] MEDS ORDERED: FLU VACC QS2019-20(6MOS UP)/PF 60 MCG/0.5 ML SYRINGE IM ONE (09:00)
[2019-12-01] MEDS: FLUoxetine HCl 20 MG CAP PO SCH (10:13)
[2019-12-01] MEDS: Famotidine 20 MG TAB PO SCH (10:13)
--- NOTE | 2019-12-01 13:27 | CON ---
DATE OF CONSULTATION: 12/01/2019 REASON FOR CONSULTATION: Bradycardia. HISTORY OF PRESENT ILLNESS: Ms. Zapata is a 24-year-old woman, who has been seen and evaluated by Dr. Ignacio Aguillon. She has a history of bradycardia in the past. She had an implantable loop recorder placed in June in [place]. She states she had a recent syncopal episode. This occurred yesterday in the afternoon. She also tried to take her own life. She took 26 pills including a Vyvanse. She continues to be suicidal. Heart rate has been in the 40s. Implantable loop recorder has not been interrogated. No complaints of chest pain or pressure. She states she has frequent syncopal episodes. She does state she took her heart rate during this syncopal episode and was in the 20s. PAST MEDICAL HISTORY: 1. Previous suicidal attempts. 2. Bradycardia. 3. Recurrent syncope. 4. SVT. 5. Asthma. 6. PVCs. 7. Seizure disorder. SOCIAL HISTORY: No current tobacco, or alcohol use. ALLERGIES: ADHESIVE TAPE, CEFAZOLIN, METOPROLOL. REVIEW OF SYSTEMS: A 10-point review of systems is reviewed as above, otherwise negative. PHYSICAL EXAMINATION: GENERAL: Patient is a pleasant female,who is in no acute distress. The patient appears their stated age. VITAL SIGNS: Blood pressure 100/60, pulse 49, temperature afebrile. NEUROLOGIC: The patient is alert and oriented x3 with no focal neurologic deficits. HEENT: Sclerae without icterus. Mouth has moist mucous membranes with normal pallor. NECK: No JVD. Carotid upstroke brisk. No bruits bilaterally. LUNGS: Clear to auscultation with unlabored respirations. BACK: No scoliosis or kyphosis. CARDIAC: Regular rate and rhythm with normal S1 and S2. No S3 or S4 noted. No significant rubs, murmurs, thrills, or gallops noted throughout the precordium. PMI is not displaced. There is no parasternal heave. ABDOMEN: Soft, nontender, nondistended. No peritoneal signs present. No hepatosplenomegaly. No abnormal striae. EXTREMITIES: 2+ femoral and 2+ dorsalis pedis pulses. No cyanosis, clubbing, or edema. SKIN: No gross abnormalities. PERTINENT LABORATORY DATA: Hemoglobin 12.8, hematocrit 37.8. IMPRESSION: 1. Bradycardia. 2. Syncope. 3. Suicidal ideations. RECOMMENDATIONS: We will interrogate her loop recorder. I would like to see a correlation between syncope yesterday afternoon and heart rate below 40. If so , we therefore recommend pacemaker implantation. She has been told by Dr. Aguillon in the past that pacemaker implantation was likely eminent. We will also review her echo. ADDENDUM: Review of ILR. No significant bradycardia noted on 11/29 during syncope and prior to suicide attempt Pt with bradycardia noted in October with HR in the 30's but noted during non- waking hours. Continue to observe. Job ID: [id number] MTDD
--- NOTE | 2019-12-01 18:50 | CON ---
DATE OF CONSULTATION: 12/01/2019 HISTORY OF PRESENT ILLNESS: Ms. Zapata is 24 years old with history of depression and suicide attempts. She was seen by Cardiology today after suicide attempt by ingesting pills. She claimed to have had a syncopal episode earlier in the day. Her monitor has been interrogated. There is no evidence of bradycardia on her loop recorder, it would correlate during the time where she had a reported syncope. She appears to be stable. Her heart rate is in the 50s, blood pressure has been stable. She is having no respiratory issues. She actually is telling the nurses she wants to go to a psychiatric hospital. PAST MEDICAL HISTORY: Remarkable for asthma and reported seizure disorder. SOCIAL HISTORY: She is a nonsmoker, nondrinker. PHYSICAL EXAMINATION: GENERAL: She is in no distress. VITAL SIGNS: Stable. HEAD AND NECK: Unremarkable. LUNGS: Clear. HEART: Regular rhythm. ABDOMEN: Soft and nontender. EXTREMITIES: Without clubbing, cyanosis, or edema. IMPRESSION: 1. Status post ingestion of multiple different medications, clinically stable at this point in time. 2. History of gastric sleeve. 3. History of lumpectomy. 4. History of cholecystectomy. 5. Status post implantation of a loop recorder with no documented rhythm disturbances prior to her overdose. 6. Multiple drug allergies. She appears to be medically stable. She can be evaluated by [facility] probably tomorrow morning. TIME SPENT: This is a 70-minute consult, 50% of the time spent on the unit coordinating care. TIME SPENT: This is a 70-minute consult, 50% of the time spent on the unit coordinating care. Job ID: [id number] [facility]
[2019-12-01] MEDS: Acetaminophen 325 MG TAB PO PRN (20:28)
[2019-12-01] MEDS ORDERED: Prazosin HCl 1 MG CAP PO SCH (21:00)
[2019-12-01] MEDS ORDERED: Aripiprazole 15 MG TAB PO SCH (21:00)
--- NOTE | 2019-12-02 02:40 | HP ---
CHIEF COMPLAINT ON ADMISSION: Suicide attempt by drug overdose. HISTORY OF PRESENT ILLNESS: The patient is a 24-year-old female who 5 times previously attempted to take her life. She states on this occasion that she and her had an argument that was so intense she felt so upset she did want to go living. She then proceeded to take 30 pills, most of which were clonazepam, but some where Prozac and there are few other pills that she normally takes, all taking in a handful. Her at this point, brought her to the emergency room. On arrival, she was alert and gave a complete history. There were no hallucinations, pain, nausea, vomiting, or diarrhea. She was noted however to have significant bradycardia. She states that this is normal for her. 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 Currently, she has severe anxiety, severe depression and impulsively took this overdose as a response to the significant argument with her . PAST MEDICAL HISTORY: Extensive, as mentioned previously for 5 previous suicide attempts. She has a history of supraventricular tachycardia, asthma, premature ventricular contractions, bradycardia, seizures, GERD, chronic migraines, attention deficit disorder, irritable bowel syndrome, constipation predominant. She also has posttraumatic stress disorder, sleep terrors and bipolar disorder, most recent episode depression. PAST SURGICAL HISTORY: Includes cardiac ablation x2, gastric sleeve surgery 06/01/2018, breast lumpectomy, cholecystectomy, and loop recorder implantation. PSYCHIATRIC HISTORY: As previously noted significant for anxiety, depression, posttraumatic stress disorder. SOCIAL HISTORY: Denies alcohol, drug use or smoking. She is . ALLERGIES: ALLERGIES ARE TO ADHESIVE TAPE, THESE CAUSE RASHES AND LEAVE SCARS, ANCEF, CEFAZOLIN, METOPROLOL, ALL THESE CAUSE SOME ANAPHYLACTIC REACTION. MEDICATIONS ON ADMISSION: Include: 1. Vyvanse 30 mg daily. 2. Emgality 120 mg subcutaneous monthly. 3. Prozac 60 mg daily. 4. Prazosin for night terrors 1 mg at bedtime. 5. Zantac 150 mg b.i.d. 6. Linzess 145 mg daily. 7. Singulair 10 mg daily. 8. Corlanor 5 mg daily. 9. Clonazepam 1 mg p.r.n. panic attacks usually once or twice a week. 10. Lomotil p.r.n. diarrhea. 11. Phenergan p.r.n. nausea. 12. Tramadol p.r.n. migraine. 13. Relpax p.r.n. migraine. 14. Zofran 8 mg p.r.n. nausea. 15. Stool softener. REVIEW OF SYSTEMS: At the time of admission: CONSTITUTIONAL: Denies fever, chills, fatigue. HEENT: Denies drainage or sores in eyes, ears, nose, or throat. CARDIOVASCULAR: Admits to chronic bradycardia, but denies chest pain or palpitations. RESPIRATORY: Denies cough or shortness of breath. GI: Denies nausea, vomiting, or diarrhea at this time. : Denies blood in urine or stool or dysuria. MUSCULOSKELETAL: Denies any pain in joints or muscle groups. SKIN: No new rashes or lesions. NEUROLOGIC: Current trouble with headaches, paresthesias or hypesthesia. HEMOLYMPHATICS: No trouble with lymph node enlargement, swelling, hot flashes. PSYCHIATRIC: Reports severe exacerbation of anxiety and depression with emotional lability and continues to want to end her life currently. PHYSICAL EXAMINATION: VITAL SIGNS: On admission, blood pressure is 114/54, pulse at the 52, respirations 16, temperature 98.2, pain scale of 2, O2 saturation 99% on room air. GENERAL: This is a well-developed, well-nourished, female, alert, oriented, cooperative. HEENT: Normocephalic, atraumatic. Pupils are equal, round, and reactive to light. Extraocular muscles are intact. TMs, nares, and pharynx are clear. NECK: Supple. Trachea midline. No lymphadenopathy. CHEST: Clear to auscultation. HEART: Regular rate and rhythm without murmur, bradycardic. BREASTS: Deferred. ABDOMEN: Soft, nontender without hepatosplenomegaly. : Deferred. EXTREMITIES: Without clubbing, cyanosis, or edema. Symmetrical muscular tone development noted. Range of motion present. SKIN: Without acute rashes or lesions. NEUROLOGIC: Cranial nerves are intact. Gait and cerebellar function normal. Sensory exam are intact. The mental status is significant for anxiety, depression. She continues to want to end her life and agrees that she needs further psychiatric care and a rearrangement of her medication. Her judgment is poor. Her insight is poor. Her memory is intact. Concentration is normal. She is still suicidal and plans to repeat overdose, if given the opportunity. LABORATORY DATA: Lab work thus far, WBC 6.2, hemoglobin 12.8, hematocrit 37.8, platelets at 227. Sodium 142, potassium 4.0, chloride 107, CO2 27, BUN 14, creatinine 0.83 with glucose at 63. Drug screen is unremarkable. ASSESSMENT: 1. Bipolar with major depression features and recent suicide attempt by drug overdose. 2. Recurrent bradycardic episodes with history of syncopal episodes. PLAN: Plan to continue to watch her in IMCU, clear her medically via cardiac evaluation and she continues to be bradycardic, once stable - [facility] evaluation for psychiatric inpatient management. Job ID: [id number] KENNETH
[2019-12-02 04:35] LABS: #Eosinphils 0.4 thou/uL (0.0-0.7); #Lymphocytes 2.6 thou/uL (1.20-3.40); #Monocytes 0.4 thou/uL (0.11-0.59); #Neutrophils 2.2 thou/uL (1.40-6.50); %Basophils 0.8 % (0.0-1.0); %Eosinophils 6.3 % (0.0-10.0); %Lymphocytes 46.7 % (21.0-51.0); %Neutrophils 39.3 % (42.0-75.0); Hemoglobin 11.5 g/dL (12.0-16.0); Mean Corpuscular HGB CONC 32.7 g/dL (32.0-36.0); Mean Corpuscular Hemoglobin 29.7 pg (27.0-31.0); Mean Corpuscular Volume 90.9 fL (78.0-98.0); Mean Platelet Volume 8.7 fL (7.4-10.4); Platelet Count 194 thou/uL (130-400); Red Blood Cell (RBC) Count 3.87 mill/uL (4.20-5.40); White Blood Cell (WBC) Count 5.7 thou/uL (4.8-10.8)
[2019-12-02 04:58] LABS: Anion Gap 8 mmol/L (10-20); BUN (Urea Nitrogen) 12 mg/dL (7.0-18.7); Calc. Creatinine Clearance 105 mL/min (70-130); Calcium 8.3 mg/dL (7.8-10.44); Carbon Dioxide 26 mmol/L (22-29); Chloride 110 mmol/L (98-107); Estimated GFR-MDRD 89; Glucose 81 mg/dL (70-105); Potassium 4.3 mmol/L (3.5-5.1); Sodium 140 mmol/L (136-145)
[2019-12-02] MEDS ORDERED: SPRINTEC 28 PO SCH (09:00)
[2019-12-02] MEDS ORDERED: LO LOESTRIN FE PO SCH (09:00)
[2019-12-02] MEDS ORDERED: LINZESS 145 MG PO SCH (09:00)
[2019-12-02] MEDS: FLUoxetine HCl 20 MG CAP PO SCH (09:32)
[2019-12-02] MEDS: Acetaminophen 325 MG TAB PO PRN ×2 (09:32→16:44)
[2019-12-02] MEDS: Famotidine 20 MG TAB PO SCH (09:32)
--- NOTE | 2019-12-02 12:58 | PDOC.CPN ---
- Subjective Date: 12/02/19 Time: 09:30 Interval history: No overnight events. No pauses on tele. Pulse drops to 40s while sleeping. c/o heartburn - Review of Systems General: denies: fever/chills, weight/appetite/sleep changes, night sweats, fatigue Respiratory: denies: cough, congestion, shortness of breath, exercise intolerance Cardiovascular: denies: chest pain, palpitation, edema, paroxysmal nocturnal dyspnea, orthopnea Gastrointestinal: denies: nausea, vomiting, diarrhea, constipation, abd pain, GI bleeding Musculoskeletal: denies: pain, tenderness, stiffness, swelling, arthritis/ arthralgias Neurological: denies: numbness, syncope, seizure, weakness - Objective Allergies/Adverse Reactions: Allergies Allergy/AdvReac Type Severity Reaction Status Date / Time cefazolin [From Ancef] Allergy Severe Anaphylaxis Verified 06/21/18 07:36 adhesive Allergy Rash Verified 06/21/18 07:36 metoprolol [From Toprol XL] Allergy Anaphylaxis Verified 06/21/18 07:36 Visit Medications: Current Medications Acetaminophen (Tylenol) 650 mg PO Q4H PRN PRN Reason: Headache/Fever or Pain Last Admin: 12/02/19 09:32 Dose: 650 mg Aripiprazole (Abilify) 15 mg PO HS [facility] Last Admin: 12/01/19 20:28 Dose: Not Given Famotidine (Pepcid) 40 mg PO DAILY [facility] Last Admin: 12/02/19 09:32 Dose: 40 mg Fluoxetine HCl (Prozac) 60 mg PO DAILY [facility] Last Admin: 12/02/19 09:32 Dose: 60 mg Ondansetron HCl (Zofran Odt) 4 mg PO Q6H PRN PRN Reason: Nausea/Vomiting Patient's Home Medication (Linzess 145 Mg) 0 each PO DAILY [facility] Last Admin: 12/02/19 09:31 Dose: Not Given Lo Loestrin Fe 0 each PO DAILY [facility] Last Admin: 12/02/19 09:33 Dose: 1 each Prazosin HCl (Minipress) 1 mg PO HS [facility] Last Admin: 12/01/19 20:28 Dose: 1 mg Vital Signs & Weight: Vital Signs Temp Pulse Resp BP Pulse Ox 12/02/19 11:47 98.4 F 50 L 18 110/55 L 97 12/02/19 08:36 97.8 F 53 L 18 104/57 L 94 L 12/02/19 04:20 97.2 F L 50 L 18 104/61 98 Admit Weight 135 lb Weight 135 lb - Physical Exam General: alert & oriented x3, appears well HEENT: mucus membranes moist Neck: supple neck Cardiac: regular rate and rhythm Lungs: clear to auscultation Neuro: grossly intact Abdomen: soft, non-tender Extremities: no clubbing Skin: clear - Labs Result Diagrams: 12/02/19 04:24 12/02/19 04:24 - Assessment/Plan Assessment/Plan: 1. Suicidal attempt 2. Bradycardia Stable rhythm at this time. LINQ in place. Continue monitoring. Will sigh off. Call back if necessary.
[2019-12-02 13:40] LABS: Amphetamine Not Detected (NotDetected); Barbiturates Screen Not Detected (NotDetected); Benzodiazepine Screen Detected (NotDetected); Cocaine Metabolite Screen Not Detected (NotDetected); Medtox Control Line Valid? VALID (VALID); Medtox Reader # READER 4; Methadone Not Detected (NotDetected); Methamphetamine Not Detected (NotDetected); Opiate Screen Not Detected (NotDetected); Oxycodone Screen Not Detected (NotDetected); Phencyclidine (PCP) Not Detected (NotDetected); THC/Cannabinoid Screen Not Detected (NotDetected); Tricyclic Screen Not Detected (NotDetected)
[2019-12-02 16:01] VITALS: TEMP 98.1
[2019-12-02 18:40] VITALS: BP 116/74
== END 2019-12-02 18:40 | disposition home or self-care (01) | DRG 918 ==
LOC: ERS 00:21 → ERHOLD 01:51 → 2NO 03:19 → CCU 03:29 → 2NO 18:20
PROVIDERS: ADMIT Specialist; ATTEND Specialist
DX: T42.4X2A Poisoning by benzodiazepines, intentional self-harm, initial encounter (principal); R45.851 Suicidal ideations; F41.9 Anxiety disorder, unspecified; F31.9 Bipolar disorder, unspecified; K21.9 Gastro-esophageal reflux disease without esophagitis; G43.809 Other migraine, not intractable, without status migrainosus; J45.909 Unspecified asthma, uncomplicated; F98.8 Other specified behavioral and emotional disorders with onset usually occurring in childhood and adolescence; K58.9 Irritable bowel syndrome, unspecified; R00.1 Bradycardia, unspecified; G40.909 Epilepsy, unspecified, not intractable, without status epilepticus; F43.10 Post-traumatic stress disorder, unspecified; Z98.84 Bariatric surgery status; Z90.49 Acquired absence of other specified parts of digestive tract; Z88.1 Allergy status to other antibiotic agents; Z88.2 Allergy status to sulfonamides; Z88.8 Allergy status to other drugs, medicaments and biological substances
CPT/HCPCS: 36415; 80048; 80053; 80306; 80307; 85025; 93005; 96360; 96361; 96374; J0461; J2405

== ENCOUNTER 2020-05-23 06:57 | Outpatient (CLI) | payer BC, OTHER ==
--- NOTE | 2020-05-23 15:21 | RAD ---
XR Chest Pa Lat STANDARD HISTORY: Preoperative evaluation COMPARISON: 05/22/2018 FINDINGS: The heart size is normal. There is been interval placement of a left-sided pacemaker device with bipolar leads in the right atrium and right ventricle. The lungs are well expanded without focal areas of consolidation, pneumothorax or pleural effusions. IMPRESSION: No radiographic evidence of acute cardiopulmonary process.
[2020-05-23 18:02] LABS: #Eosinphils 0.2 thou/uL (0.0-0.7); #Lymphocytes 2.5 thou/uL (1.20-3.40); #Monocytes 0.5 thou/uL (0.11-0.59); #Neutrophils 3.7 thou/uL (1.40-6.50); %Basophils 0.6 % (0.0-1.0); %Eosinophils 2.4 % (0.0-10.0); %Lymphocytes 36.6 % (21.0-51.0); %Monocytes 7.3 % (0.0-10.0); %Neutrophils 53.1 % (42.0-75.0); Hemoglobin 13.9 g/dL (12.0-16.0); Mean Corpuscular HGB CONC 32.8 g/dL (32.0-36.0); Mean Corpuscular Hemoglobin 28.7 pg (27.0-31.0); Mean Corpuscular Volume 87.6 fL (78.0-98.0); Mean Platelet Volume 9.3 fL (7.4-10.4); Platelet Count 275 thou/uL (130-400); RBC Distribution Width 12.3 % (11.5-14.5); Red Blood Cell (RBC) Count 4.84 mill/uL (4.20-5.40); White Blood Cell (WBC) Count 6.9 thou/uL (4.8-10.8)
[2020-05-23 19:00] LABS: BHCG - Serum Negative (NEGATIVE); Pregs Control Background? CLEAR/WHITE (CLR/WHITE); Pregs Control Bar Appear? YES (CONTROL BAR)
[2020-05-23 19:34] LABS: Hemoglobin A1c 4.9 % (4.0-6.0)
[2020-05-23 21:10] LABS: ALT (SGPT) 14 U/L (8-55); AST (SGOT) 19 U/L (5-34); Albumin 4.6 g/dL (3.5-5.0); Alkaline Phosphatase 74 U/L (40-110); Anion Gap 18 mmol/L (10-20); BUN (Urea Nitrogen) 11 mg/dL (7.0-18.7); Bilirubin, Total 0.4 mg/dL (0.2-1.2); Calc. Creatinine Clearance 0 mL/min (70-130); Calcium 9.1 mg/dL (7.8-10.44); Carbon Dioxide 19 mmol/L (22-29); Chloride 106 mmol/L (98-107); Estimated GFR-MDRD 78; Globulin 2.8 g/dL (2.4-3.5); Glucose 87 mg/dL (70-105); Potassium 4.2 mmol/L (3.5-5.1); Protein, Total 7.4 g/dL (6.0-8.3); Sodium 139 mmol/L (136-145)
[2020-05-24 12:21] LABS: SARS-CoV-2 MS2 Positive; SARS-CoV-2 N Gene Negative; SARS-CoV-2 S Gene Negative; SARS-CoV-2 by NAA Not Detected (NotDetected); SARS-CoV-2 orf1ab Negative
== END 2020-05-23 06:58 | disposition home or self-care (01) ==
LOC: LABBT 06:57 → SCSRAD 06:58
PROVIDERS: ATTEND Surgery
DX: Z01.818 Encounter for other preprocedural examination (principal); Z20.828 Contact with and (suspected) exposure to other viral communicable diseases
CPT/HCPCS: 71046; 80053; 83036; 84703; 85025; 87635; 93005; 93010; U0003

== ENCOUNTER 2020-05-23 14:45 | Inpatient (IN) | payer BC ==
[2020-05-27] MEDS ORDERED: Lidocaine 1% PF 5 ML VIAL ONE (09:04)
[2020-05-27] MEDS ORDERED: Succinylcholine Chloride 20 MG/ML 10 ml SYRINGE FS ONE (09:04)
[2020-05-27] MEDS ORDERED: Glycopyrrolate 0.2 MG/ML 5 ML SYRINGE ONE (09:04)
[2020-05-27] MEDS ORDERED: Rocuronium Bromide 10 MG/ML (10ML VIAL) ONE (09:04)
[2020-05-27] MEDS ORDERED: PROPOFOL 200 MG/20 ML VIAL ONE (09:04)
[2020-05-27] MEDS ORDERED: Dexamethasone 20 MG/5 ML VIAL ONE (09:04)
[2020-05-27] MEDS ORDERED: Ketorolac Tromethamine 30 MG/ML VIAL ONE (09:04)
[2020-05-27] MEDS ORDERED: Ondansetron PF 4 MG/2 ML Vial ONE ×2 (09:04→17:50)
[2020-05-27] MEDS ORDERED: Fentanyl 250 MCG/5 ML VIAL ONE (11:03)
[2020-05-27] MEDS ORDERED: Heparin 5,000 UNITS/ML VIAL ONE (11:33)
[2020-05-27] MEDS ORDERED: Midazolam HCl 2 mg/2 ml Vial ONE (11:33)
[2020-05-27] MEDS ORDERED: Bupivacaine 0.25% HCL 30 ML VIAL ONE (11:45)
[2020-05-27] MEDS ORDERED: Lidocaine 1% w/Epinephrine 1:100K 20 ML VIAL ONE (11:45)
[2020-05-27] MEDS ORDERED: Levofloxacin 500 mg/D5W 100 ml Premix Bag ONE (11:47)
[2020-05-27] MEDS ORDERED: Promethazine HCl 25 MG/ML VIAL IM PRN ×2 (13:40→13:54)
[2020-05-27] MEDS ORDERED: Ondansetron HCl/PF 4 MG/2 ML Vial IVP PRN (13:40)
[2020-05-27] MEDS ORDERED: Promethazine HCl 25 MG/ML VIAL SLOW IVP PRN (13:40)
[2020-05-27] MEDS ORDERED: hydrALAZINE 20 MG/ML VIAL SLOW IVP PRN (13:54)
[2020-05-27] MEDS ORDERED: Dextrose 5% in Water 1,000 ML IV PRN (13:54)
[2020-05-27] MEDS ORDERED: Dextrose 50% Abboject 50 ML SYRINGE SLOW IVP PRN (13:54)
[2020-05-27] MEDS ORDERED: Ondansetron PF 4 MG/2 ML Vial IVP PRN ×2 (13:54→14:02)
[2020-05-27] MEDS ORDERED: diphenhydrAMINE 50 MG/ML VIAL IVP PRN ×2 (13:54→14:02)
[2020-05-27] MEDS ORDERED: Hydrocodone-Acetamin 15 ML UDCUP PO PRN (13:54)
[2020-05-27] MEDS ORDERED: Lorazepam 2 MG/ML VIAL SLOW IVP PRN (13:56)
[2020-05-27] MEDS ORDERED: diphenhydrAMINE 50 MG/ML VIAL IM PRN (14:02)
[2020-05-27] MEDS ORDERED: diphenhydrAMINE 25 MG CAP PO PRN (14:02)
[2020-05-27] MEDS ORDERED: Ketorolac Tromethamine 30 MG/ML VIAL IVP PRN (14:02)
[2020-05-27] MEDS ORDERED: Naloxone HCl 0.4 mg/ml Vial IV PRN (14:02)
[2020-05-27] MEDS ORDERED: Zolpidem Tartrate 5 MG TAB PO PRN (14:02)
[2020-05-27] MEDS ORDERED: fentaNYL Citrate/PF 2,000 MCG in Sodium Chloride 0.9% 60 ML IV PRN (14:02)
[2020-05-27] MEDS ORDERED: Communication Order-Pharmacy FS SCH (14:15)
[2020-05-27] MEDS ORDERED: Promethazine HCl 25 MG/ML VIAL ONE (14:25)
[2020-05-27] MEDS ORDERED: Fentanyl 100 MCG/2 ML VIAL ONE (14:25)
[2020-05-27] MEDS ORDERED: Ketorolac Tromethamine 30 MG/ML VIAL IVP SCH (18:00)
[2020-05-27 19:06] VITALS: BMI 26.9
[2020-05-27] MEDS: D5 1/2 NS w/20 mEq KCL 1,000 ML IV SCH ×2 (19:39→20:24)
[2020-05-27] MEDS: Lorazepam 2 MG/ML VIAL SLOW IVP PRN (20:24)
[2020-05-27] MEDS: Promethazine HCl 25 MG/ML VIAL IM PRN (20:24)
[2020-05-27] MEDS: Ivabradine 5 MG TAB PO SCH (21:00)
[2020-05-28] MEDS: Lorazepam 2 MG/ML VIAL SLOW IVP PRN (00:48)
[2020-05-28] MEDS: Promethazine HCl 25 MG/ML VIAL IM PRN (03:30)
[2020-05-28 05:22] LABS: #Lymphocytes 1.8 thou/uL (1.20-3.40); #Monocytes 0.8 thou/uL (0.11-0.59); %Basophils 0.1 % (0.0-1.0); %Eosinophils 0.2 % (0.0-10.0); %Lymphocytes 15.3 % (21.0-51.0); %Monocytes 6.8 % (0.0-10.0); %Neutrophils 77.6 % (42.0-75.0); Hemoglobin 11.2 g/dL (12.0-16.0); Mean Corpuscular HGB CONC 33.6 g/dL (32.0-36.0); Mean Corpuscular Hemoglobin 29.5 pg (27.0-31.0); Mean Corpuscular Volume 87.7 fL (78.0-98.0); Mean Platelet Volume 9.1 fL (7.4-10.4); Platelet Count 155 thou/uL (130-400); RBC Distribution Width 12.1 % (11.5-14.5); Red Blood Cell (RBC) Count 3.81 mill/uL (4.20-5.40); White Blood Cell (WBC) Count 11.5 thou/uL (4.8-10.8)
[2020-05-28] MEDS: D5 1/2 NS w/20 mEq KCL 1,000 ML IV SCH (05:30)
[2020-05-28 05:42] LABS: Anion Gap 11 mmol/L (10-20); BUN (Urea Nitrogen) 9 mg/dL (7.0-18.7); Calc. Creatinine Clearance 130 mL/min (70-130); Calcium 8.3 mg/dL (7.8-10.44); Carbon Dioxide 23 mmol/L (22-29); Chloride 108 mmol/L (98-107); Estimated GFR-MDRD 89; Glucose 141 mg/dL (70-105); Potassium 3.9 mmol/L (3.5-5.1); Sodium 138 mmol/L (136-145)
[2020-05-28] MEDS: Ivabradine 5 MG TAB PO SCH (07:51)
[2020-05-28] MEDS ORDERED: Enoxaparin Sodium 40 MG/0.4 ML SYRINGE SC SCH (09:00)
[2020-05-28] MEDS ORDERED: Pantoprazole 40 MG VIAL IVP SCH (09:00)
--- NOTE | 2020-05-28 09:40 | OP ---
DATE OF PROCEDURE: 05/27/2020 PREOPERATIVE DIAGNOSIS: Severe gastroesophageal reflux. PROCEDURES PERFORMED: 1. Laparoscopic Bere-en-Y gastric bypass. 2. Intraoperative esophagogastroscopy. INDICATIONS: This is a 24-year-old female who had a sleeve gastrectomy about a year ago, was very successful, but had severe unrelenting reflux, creating esophagitis, that could not be controlled with medication. FINDINGS: 100 cm Bere limb was created, 50 cm biliopancreatic limb. DESCRIPTION OF PROCEDURE: After informed consent was obtained, the patient was taken to the operating room, given general endotracheal anesthesia, placed in the supine position. Abdomen was prepped and draped in the usual fashion. Local anesthesia was infiltrated subcutaneously and deep and a 12-mm incision was performed, approximately 8 inches below the xiphoid and slightly to the left. Veress needle inserted. Drop test performed. Pneumoperitoneum was created to a volume of 2 L of carbon dioxide. Utilizing a bladeless 12-mm trocar and 0-degree laparoscopic, direct visual entry into the abdominal cavity was performed. Pneumoperitoneum was created to a pressure of 15 mmHg. A 0-degree laparoscope inserted under direct vision. Two 12-mm ports were placed on the right and one on the left. The omentum was grasped, advanced superiorly. The ligament of Treitz was found, 50 cm of jejunum measured off and the jejunum was divided utilizing a linear 60-mm white load stapler. Then, 100 cm of distal jejunum was measured off. A [id number], functional end-to-end anastomosis was performed. The bowel was approximated with a 2-0 silk suture, tied intracorporeally. Enterotomies performed on each limb. A 60-mm white load stapler was inserted, one limb in each lumen of bowel, closed and fired. Hemostasis was assured. The common enterotomy was closed transversely with a running 3-0 Stratafix. Then, the potential hernia space of Waggoner was closed with a 2-0 silk suture, tied intracorporeally and the patient placed in steep reverse Trendelenburg position. Keith liver retractor inserted. Left lobe of liver retracted superiorly. The stomach was inspected and the right gastric arteries were found. A dissection was performed along the lesser curvature, then entered the lesser sac. The stomach was divided utilizing a linear 60-mm blue load stapler. Then, a gastrotomy was performed, which was then dilated 1st with electrocautery, then a [place] dissector, then a blunt dissector to open it up further. Then, the Bere limb was found and an enterotomy performed with again the same way. The linear 60-mm blue load stapler was used, one limb was placed in the bowel, brought up to the stomach. The other limb placed in the stomach, closed, held for 20 seconds, and then fired. Then, the common enterotomy closed transversely with a 3-0 Stratafix. Intraoperative endoscopy was performed. The video endoscope was inserted under direct vision, advanced into the stomach and into the Bere limb easily. There was no bleeding. There was no evidence of obstruction. The bowel decompressed. The stomach decompressed. The scope removed. Hemostasis was assured. The trocars were removed under direct vision. No bleeding. The skin closed with interrupted 4-0 Rapide. Dermabond applied. The patient tolerated the procedure well, transferred to Recovery in good condition. Sponge and needle count verified correct x2. Job ID: [id number]
[2020-05-28 11:28] VITALS: BP 105/70; TEMP 97.9
--- NOTE | 2020-05-29 10:07 | DIS ---
DATE OF ADMISSION: 05/27/2020 DATE OF DISCHARGE: 05/28/2020 DISCHARGE DIAGNOSIS: Severe gastroesophageal reflux. PROCEDURES DURING ADMISSION: Laparoscopic Bere-en-Y gastric bypass, intraoperative esophagogastroscopy. HOSPITAL COURSE: The patient was admitted, taken to the operating room where she underwent a conversion from sleeve gastrectomy to Bere-en-Y gastric bypass for severe reflux. Postoperatively, she has done well. She is tolerating liquids well. Vital signs are good. She is now discharged on her usual medications plus hydrocodone and Zofran. She will follow up with me in 2 weeks. Job ID: [id number]
== END 2020-05-28 11:50 | disposition home or self-care (01) | DRG 328 ==
LOC: SURG A 05-27 10:14 → SJJU 05-27 18:44
PROVIDERS: ADMIT Surgery; ATTEND Surgery
PROC: 0DB64Z3 Excision of Stomach, Percutaneous Endoscopic Approach, Vertical (ICD-10-PCS; principal; 2020-05-27)
DX: K21.0 Gastro-esophageal reflux disease with esophagitis (principal); G40.909 Epilepsy, unspecified, not intractable, without status epilepticus; G43.909 Migraine, unspecified, not intractable, without status migrainosus; M26.609 Unspecified temporomandibular joint disorder, unspecified side; F41.9 Anxiety disorder, unspecified; F32.9 Major depressive disorder, single episode, unspecified; Z79.899 Other long term (current) drug therapy; Z88.8 Allergy status to other drugs, medicaments and biological substances
CPT/HCPCS: 36415; 80048; 85025; 94760; C9113; J1100; J1644; J1650; J1885; J1956; J2060; J2250; J2405; J2550; J2704; J3010; J3480; S0020

== ENCOUNTER 2020-07-26 20:30 | Emergency (ER) | payer BC ==
[~2020-07-26 20:30] MED LIST changes: -Iopamidol 370 76% 100 ML VIAL ONE; +Iopamidol-370 76% 500 ML 1 ML ONE
[2020-07-26 21:12] LABS: #Eosinphils 0.2 thou/uL (0.0-0.7); #Lymphocytes 1.7 thou/uL (1.20-3.40); #Monocytes 0.5 thou/uL (0.11-0.59); #Neutrophils 3.2 thou/uL (1.40-6.50); %Basophils 0.6 % (0.0-1.0); %Eosinophils 4.4 % (0.0-10.0); %Lymphocytes 30.5 % (21.0-51.0); %Monocytes 8.6 % (0.0-10.0); Hemoglobin 11.6 g/dL (12.0-16.0); Mean Corpuscular HGB CONC 33.4 g/dL (32.0-36.0); Mean Corpuscular Hemoglobin 28.7 pg (27.0-31.0); Mean Platelet Volume 8.8 fL (7.4-10.4); Platelet Count 230 thou/uL (130-400); RBC Distribution Width 13.1 % (11.5-14.5); Red Blood Cell (RBC) Count 4.02 mill/uL (4.20-5.40); White Blood Cell (WBC) Count 5.6 thou/uL (4.8-10.8)
[2020-07-26] MEDS ORDERED: Ondansetron PF 4 MG/2 ML Vial ONE (21:18)
[2020-07-26 21:37] LABS: ALT (SGPT) 90 U/L (8-55); AST (SGOT) 65 U/L (5-34); Albumin 3.8 g/dL (3.5-5.0); Alkaline Phosphatase 129 U/L (40-110); Anion Gap 15 mmol/L (10-20); BUN (Urea Nitrogen) 13 mg/dL (7.0-18.7); Bilirubin, Total 0.3 mg/dL (0.2-1.2); Calc. Creatinine Clearance 0 mL/min (70-130); Calcium 8.9 mg/dL (7.8-10.44); Carbon Dioxide 21 mmol/L (22-29); Chloride 106 mmol/L (98-107); Estimated GFR-MDRD Greater than 90; Globulin 3.1 g/dL (2.4-3.5); Glucose 86 mg/dL (70-105); Lipase 30 U/L (8-78); Potassium 3.3 mmol/L (3.5-5.1); Protein, Total 6.9 g/dL (6.0-8.3); Sodium 139 mmol/L (136-145)
[2020-07-26 21:40] LABS: BHCG - Serum Negative (NEGATIVE); Pregs Control Background? CLEAR/WHITE (CLR/WHITE); Pregs Control Bar Appear? YES (CONTROL BAR)
[2020-07-26] MEDS ORDERED: Acetaminophen 325 MG/10.15 ML UDCUP ONE (22:04)
--- NOTE | 2020-07-26 22:11 | CT ---
CT Abdomen Pelvis W Con HISTORY: Nausea and vomiting. Abdominal pain COMPARISON: 06/03/2018 FINDINGS: The lung bases are clear. Postop changes of cholecystectomy and cortical gastric sleeve procedure aga in seen. The liver, spleen, pancreas, adrenal glands and kidneys are unremarkable. No free air or lymphadenopa thy seen in the abdomen or pelvis. Uterus and ovaries are present. A tiny amount of free fluid is seen in the pelvis. The small bowel loops are not abnormally dilated. A normal-appearing appendix is present. No acute os seous abnormalities are seen. IMPRESSION: No acute process.
[2020-07-26] MEDS ORDERED: Promethazine HCl 25 MG/ML VIAL ONE (22:13)
[2020-07-26] MEDS ORDERED: Multivitamins, Adult 10 ML, Thiamine HCl 100 MG, Folic Acid 1 MG in Dextrose 5 %-0.45 %... IV SCH (22:30)
[2020-07-26 22:32] LABS: Bilirubin Negative (Negative); Blood, Urine Negative (Negative); Clarity Turbid (Clear); Glucose, Urine (Dipstick) Normal (Negative); Ketone, Urine Greater than 150 mg/dL (Negative); Leukocyte 75 Leu/uL (Negative); Nitrite Negative (Negative); Protein, Urine (Dipstick) 100 mg/dL (Neg-Trace); Specific Gravity, Urine 1.031 (1.002-1.036); Squamous Epithelial 21-50 HPF (0-3); Urobilinogen 3 mg/dL (Less than 2)
[2020-07-26 22:33] LABS: Bacteria/HPF 3+ HPF (None Seen)
[2020-07-26 22:37] LABS: Amphetamine Not Detected (NotDetected); Barbiturates Screen Not Detected (NotDetected); Benzodiazepine Screen Detected (NotDetected); Cocaine Metabolite Screen Not Detected (NotDetected); Medtox Control Line Valid? VALID (VALID); Medtox Reader # READER 4; Methadone Not Detected (NotDetected); Methamphetamine Not Detected (NotDetected); Opiate Screen Not Detected (NotDetected); Oxycodone Screen Not Detected (NotDetected); Phencyclidine (PCP) Not Detected (NotDetected); THC/Cannabinoid Screen Not Detected (NotDetected); Tricyclic Screen Not Detected (NotDetected)
--- NOTE | 2020-07-26 22:40 | RAD ---
XR Chest 1 View Portable HISTORY: Syncope COMPARISON: 05/23/2020 FINDINGS: The heart size is normal. Left-sided pacer device remains in place. The lungs are well expa nded without focal areas of consolidation, pneumothorax or pleural effusions. IMPRESSION: No radiographic evidence of acute cardiopulmonary process.
--- NOTE | 2020-07-26 23:28 | ULT ---
GALLBLADDER ULTRASOUND: HISTORY:Vomiting, right upper quadrant pain FINDINGS: The liver demonstrates homogeneous echotexture without focal mass or intrahepatic biliary ductal dila tation. The patient is status post colostomy. The right kidney and pancreas are normal. The common duct [id number] in diameter. No free fluid is seen in the Qureshi's pouch. IMPRESSION: Status post cholecystectomy, otherwise unremarkable exam
== END 2020-07-27 00:33 | disposition home or self-care (01) ==
LOC: ERS 20:30
DX: R55 Syncope and collapse (principal); R11.2 Nausea with vomiting, unspecified; Z79.899 Other long term (current) drug therapy; Z79.891 Long term (current) use of opiate analgesic; J45.909 Unspecified asthma, uncomplicated; F32.9 Major depressive disorder, single episode, unspecified; F41.9 Anxiety disorder, unspecified
CPT/HCPCS: 36415; 71045; 74177; 76705; 80053; 80306; 81003; 81015; 83605; 83690; 84484; 84703; 85025; 93005; 96365; 96366; 96375; J2405; J2550; J3411; J7042; Q9967

== ENCOUNTER 2020-10-21 13:21 | Observation (INO) | payer BC ==
[2020-10-21 14:16] LABS: #Basophils 0.1 thou/uL (0.0-0.2); #Eosinphils 0.2 thou/uL (0.0-0.7); #Monocytes 0.6 thou/uL (0.11-0.59); #Neutrophils 5.9 thou/uL (1.40-6.50); %Basophils 1.1 % (0.0-1.0); %Eosinophils 1.8 % (0.0-10.0); %Lymphocytes 22.4 % (21.0-51.0); %Monocytes 7.3 % (0.0-10.0); %Neutrophils 67.4 % (42.0-75.0); Hemoglobin 13.4 g/dL (12.0-16.0); Mean Corpuscular HGB CONC 32.5 g/dL (32.0-36.0); Mean Corpuscular Hemoglobin 27.3 pg (27.0-31.0); Mean Corpuscular Volume 84.2 fL (78.0-98.0); Mean Platelet Volume 8.3 fL (7.4-10.4); Platelet Count 268 thou/uL (130-400); RBC Distribution Width 13.8 % (11.5-14.5); White Blood Cell (WBC) Count 8.8 thou/uL (4.8-10.8)
[2020-10-21 14:28] LABS: PTT 27.5 sec (22.9-36.1); Prothrombin Time 13.4 sec (12.0-14.7)
[2020-10-21 14:42] LABS: BHCG - Serum Negative (NEGATIVE); Pregs Control Background? CLEAR/WHITE (CLR/WHITE); Pregs Control Bar Appear? YES (CONTROL BAR)
[2020-10-21 14:54] LABS: ALT (SGPT) 10 U/L (8-55); AST (SGOT) 20 U/L (5-34); Alkaline Phosphatase 119 U/L (40-110); Anion Gap 14 mmol/L (10-20); BUN (Urea Nitrogen) 12 mg/dL (7.0-18.7); Bilirubin, Total 0.5 mg/dL (0.2-1.2); Calc. Creatinine Clearance 0 mL/min (70-130); Calcium 9.1 mg/dL (7.8-10.44); Carbon Dioxide 23 mmol/L (22-29); Chloride 104 mmol/L (98-107); Globulin 3.5 g/dL (2.4-3.5); Glucose 95 mg/dL (70-105); Potassium 4.3 mmol/L (3.5-5.1); Protein, Total 7.5 g/dL (6.0-8.3); Sodium 137 mmol/L (136-145)
[2020-10-21] MEDS ORDERED: Pantoprazole 40 MG VIAL IVP SCH (15:00)
[2020-10-21] MEDS ORDERED: Pantoprazole 80 MG, Admixture Fee 1 EACH in Sodium Chloride 0.9% 100 ML IVPB SCH ×2 (15:00→18:00)
[2020-10-21] MEDS ORDERED: Pantoprazole 40 MG VIAL ONE (15:21)
[2020-10-21 17:20] VITALS: BMI 20.7
[2020-10-21] MEDS ORDERED: Sodium Chloride 0.9% 1,000 ML IV SCH (17:30)
[2020-10-21] MEDS ORDERED: Ondansetron HCl/PF 8 MG in Sodium Chloride 0.9% 50 ML IVPB PRN (17:51)
[2020-10-21] MEDS: Sodium Chloride 0.9% 1,000 ML IV SCH (18:17)
[2020-10-21] MEDS: Fentanyl 100 MCG/2 ML VIAL SLOW IVP PRN (18:17)
--- NOTE | 2020-10-21 20:21 | CON ---
DATE OF CONSULTATION: 10/21/2020 CHIEF COMPLAINT: Abdominal pain and vomited blood. HISTORY OF PRESENT ILLNESS: Ms. Zapata is a 25-year-old woman who presents with vomiting blood and abdominal pain. 24 hours ago, she ate some spaghetti and then shortly after that started feeling sharp constant pain in the epigastric region, rated 7/10 in severity. She vomited with initially dry heaving and retching and then vomited a bowel full of red blood and then vomited a second time with about a cup of red blood. She came to the emergency room for further care. Her nausea is currently improved, but she still has pain in the epigastric region. Upper endoscopy by Dr. Helms on 08/20/2020 revealed a white broad based ulcer at the gastrojejunal anastomosis. She has been treated with proton pump inhibitor twice daily and sucralfate. She does not use NSAIDs. She does not smoke. Previously, she had a gastric sleeve surgery for weight loss, was converted to a Bere-en-Y gastric bypass in May of 2020 due to persistent uncontrolled reflux symptoms after the gastric sleeve. She has had some stenosis at the anastomosis as well and she had dysphagia symptoms that had improved with proton pump inhibitor use. She has been treated with Linzess for chronic constipation. PAST MEDICAL HISTORY: Supraventricular tachycardia for which she underwent an ablation and then pacemaker placement, asthma, depression, and anxiety. PAST SURGICAL HISTORY: Gastric sleeve, Bere-en-Y gastric bypass, upper endoscopy, pacemaker placement. FAMILY HISTORY: Negative for GI malignancies. SOCIAL HISTORY: No alcohol, tobacco, or drugs. ALLERGIES: ANCEF, DAIRY PRODUCTS, METOPROLOL, ADHESIVE. OUTPATIENT MEDICATIONS: Based on our last office note in August, as the patient does not have the exact names with her now, include; 1. Omeprazole 40 mg twice daily. 2. Aripiprazole. 3. Clonazepam. 4. Corlanor. 5. Cyclobenzaprine. 6. Fluoxetine. 7. Linzess. 8. Midodrine 5 mg 3 times a day. 9. Prazosin. 10. Promethazine. 11. Sunosi. 12. Tramadol. 13. Vyvanse. REVIEW OF SYSTEMS: Negative x10 systems reviewed except as stated in History of Present Illness. PHYSICAL EXAMINATION: VITAL SIGNS: Temperature 98.4, pulse 78, blood pressure 113/73. GENERAL: She is in no acute distress. Alert and oriented x3. HEENT: Eyes have no scleral icterus. Oropharynx is clear without lesions. No cervical or supraclavicular lymphadenopathy. LUNGS: Clear to auscultation bilaterally. HEART: Regular rate and rhythm without murmur. ABDOMEN: Soft, tender in the upper epigastric area without guarding. Bowel sounds are present. EXTREMITIES: No lower extremity edema. Cranial nerves are grossly intact. LABORATORY DATA: White blood cell count 8.8, hemoglobin 13.4, platelets 268. INR 1.0. Creatinine 0.84, bilirubin 0.5, AST 20, ALT 10, alkaline phosphatase 119, albumin 4.0. IMPRESSION: 1. Hematemesis. She reports a couple of episodes of about a cupful of red hematemesis. I suspect this could have been due to a Kaci-Purvis tear giving the retching; however, she had a known large ulcer at the gastrojejunal anastomosis just two months ago by upper endoscopy and this very well might not have healed and could be bleeding now. At this point, we need to reassess the status of her ulcer and plan for intervention for ongoing bleeding if present. 2. Anastomotic ulcer. RECOMMENDATIONS: 1. Proton pump inhibitor IV. 2. EGD tomorrow morning. Job ID: [id number]
[2020-10-21] MEDS: Ivabradine 5 MG TAB PO SCH (20:50)
[2020-10-21] MEDS: Hyoscyamine Sulfate SL 0.125 mg Tablet SL SCH (20:50)
[2020-10-21] MEDS ORDERED: hydrOXYzine 25 MG TAB PO SCH (21:00)
[2020-10-21] MEDS ORDERED: Hyoscyamine Sulfate SL 0.125 mg Tablet SL SCH (21:00)
--- NOTE | 2020-10-21 22:00 | HP ---
CHIEF COMPLAINT: Abdominal pain. HISTORY OF PRESENT ILLNESS: The patient states that one day prior to coming to the emergency room she began to have severe midepigastric pain. She started vomiting. She would have black tarry stools as well as vomiting bright red blood. She came to the emergency room for further evaluation because her pain was so intense. She has had a history of a gastric sleeve associated ulcer in the past, which she states has not resolved. GI was called about her condition and they recommended admission and preparation for EGD in the morning. PAST MEDICAL HISTORY: Significant for the aforementioned gastric bypass ulcer, 5 previous suicide attempts, supraventricular tachycardia, asthma, PVCs, bradycardia, seizures, GERD, chronic migraines, attention deficit disorder, irritable bowel syndrome, narcolepsy, constipation predominant, IBS, post-traumatic stress disorder, sleep tears, bipolar disorder with a prevalence of depression. PAST SURGICAL HISTORY: Includes cardiac ablation x2, gastric sleeve surgery 06/01/2018, breast lumpectomy, cholecystectomy, and loop recorder implantation. PSYCHIATRIC HISTORY: As previously mentioned is significant for anxiety, depression, posttraumatic stress disorder, and probable bipolar disorder. SOCIAL HISTORY: Denies alcohol, drug use, or smoking. She is . ALLERGIES: TO ADHESIVE TAPE, ANCEF, CEFAZOLIN, AND METOPROLOL. MEDICATIONS: Her medications on admission include; 1. Vyvanse 30 mg daily. 2. Tramadol 50 mg p.r.n. pain. 3. Clonazepam 1 mg p.r.n. anxiety. 4. Sunosi 150 mg p.o. b.i.d. 5. 10/08 control. 6. Linzess 72 mcg p.r.n. 7. Corlanor 5 mg p.o. b.i.d. 8. Ajovy 225 mg IM monthly. 9. Dexilant 60 mg at bedtime. 10. Zyrtec 10 mg at bedtime. 11. Hydroxyzine 50 mg at bedtime. REVIEW OF SYSTEMS: CONSTITUTIONAL: Denies fever, chills, or general malaise. HEENT: No drainage in ears, eyes, nose, or throat. CHEST: Denies dyspnea or coughing. CARDIOVASCULAR: Denies palpitations or chest pain. GI: Admits to nausea, vomiting, diarrhea, midepigastric pain as reason for admission. : Denies blood in urine, but admits to black tarry stools. She denies dysuria. MUSCULOSKELETAL: Denies aches or pains or edema. SKIN: No new rashes or lesions. NEUROLOGIC: Denies headaches or trouble with mentation. PHYSICAL EXAMINATION: VITAL SIGNS: Blood pressure 113/73, pulse is 78, respirations 16, and temperature 98.4 with O2 saturation 99% on room air. GENERAL: This is a well-developed, well-nourished, female, alert, oriented, cooperative, no acute distress at this time. HEENT: Normocephalic, atraumatic. Pupils are equal, round, and reactive to light. Extraocular muscles are intact. TMs, nares, and pharynx are clear. NECK: Supple. CHEST: Clear to auscultation. HEART: Regular rate and rhythm without murmur. BREASTS: Deferred. ABDOMEN: Tender mid epigastrically to slightest touch, it is soft. No guarding. Unable to appreciate organomegaly. : Deferred. EXTREMITIES: Without clubbing, cyanosis, or edema. Normal range of motion present. SKIN: Without rashes or lesions. NEUROLOGIC: Cranial nerves are intact. Gait and cerebellar function not tested. Sensory exam is intact. Mental status is baseline. LABORATORY DATA: Lab work thus far shows WBCs 8.8, hemoglobin 13.4, hematocrit 41.3 with platelets at 268. Her sodium is 136, potassium 4.3, chloride 104, CO2 of 23, BUN 12, and creatinine 0.4 with a GFR of 82. Liver functions unremarkable except for alkaline phosphatase elevated at 119. test negative. PT is 13.4 and INR 1.0 with APTT at 27.5. ASSESSMENT: Severe abdominal pain with history of gastric bypass associated ulcerations. PLAN: IV fluid hydration. Pain management. GI consultation and probably EGD in the morning. Face time with this patient was 30 minutes and total time including paperwork, dictation came to 1 hour. Job ID: [id number]
[2020-10-22] MEDS: Fentanyl 100 MCG/2 ML VIAL SLOW IVP PRN (00:21)
[2020-10-22 07:25] LABS: Anion Gap 13 mmol/L (10-20); BUN (Urea Nitrogen) 12 mg/dL (7.0-18.7); Calc. Creatinine Clearance 102 mL/min (70-130); Calcium 8.2 mg/dL (7.8-10.44); Carbon Dioxide 22 mmol/L (22-29); Chloride 108 mmol/L (98-107); Glucose 80 mg/dL (70-105); Potassium 3.9 mmol/L (3.5-5.1); Sodium 139 mmol/L (136-145)
[2020-10-22 07:46] LABS: #Basophils 0.1 thou/uL (0.0-0.2); #Eosinphils 0.2 thou/uL (0.0-0.7); #Lymphocytes 2.3 thou/uL (1.20-3.40); #Monocytes 0.6 thou/uL (0.11-0.59); %Basophils 1.1 % (0.0-1.0); %Eosinophils 3.7 % (0.0-10.0); %Lymphocytes 37.6 % (21.0-51.0); %Monocytes 9.4 % (0.0-10.0); %Neutrophils 48.2 % (42.0-75.0); Hemoglobin 11.3 g/dL (12.0-16.0); Mean Corpuscular HGB CONC 32.6 g/dL (32.0-36.0); Mean Corpuscular Hemoglobin 27.2 pg (27.0-31.0); Mean Corpuscular Volume 83.3 fL (78.0-98.0); Mean Platelet Volume 8.8 fL (7.4-10.4); Platelet Count 208 thou/uL (130-400); RBC Distribution Width 13.8 % (11.5-14.5); Red Blood Cell (RBC) Count 4.15 mill/uL (4.20-5.40); White Blood Cell (WBC) Count 6.2 thou/uL (4.8-10.8)
[2020-10-22 07:48] LABS: SARS-CoV-2 PCR by NAA Not Detected (NotDetected)
[2020-10-22] MEDS: Hyoscyamine Sulfate SL 0.125 mg Tablet SL SCH (07:59)
[2020-10-22] MEDS: Sodium Chloride 0.9% 1,000 ML IV SCH ×2 (07:59→12:27)
[2020-10-22] MEDS: Ivabradine 5 MG TAB PO SCH (08:00)
[2020-10-22] MEDS ORDERED: PROPOFOL 200 MG/20 ML VIAL ONE (08:52)
[2020-10-22] MEDS ORDERED: Lidocaine 1% PF 5 ML VIAL ONE (08:52)
--- NOTE | 2020-10-22 09:44 | OP ---
DATE OF PROCEDURE: 10/22/2020 PROCEDURE PERFORMED: Esophagogastroduodenoscopy. PREMEDICATION: Given by Anesthesiology Department. PREPROCEDURE DIAGNOSES: 1. Hematemesis. 2. Epigastric pain. 3. History of gastric sleeve converted to gastrojejunostomy for severe reflux and anastomotic ulcer. POSTPROCEDURE DIAGNOSES: 1. Anastomotic ulcer with white clean crater, half the circumference of the anastomosis. 2. Normal jejunum, gastric pouch, gastroesophageal junction and esophagus without any signs of active bleeding. DESCRIPTION OF PROCEDURE: Written consents were obtained prior to procedure. After adequate sedation, forward-viewing endoscope was advanced down to the stomach under direct vision. The gastric pouch was visualized. The anastomosis was visualized at 44 cm from the incisors with the GE junction located at 40 cm. The gastric pouch appeared normal. At the anastomosis, a half circumferential ulcer was seen with clean white crater without any bleeding, clots, or vessel. Two metallic clip was seen at each edge of the ulcer. The jejunum was explored and appeared normal. The GE junction was carefully visualized and appeared normal without any mucosal tear. The esophagus appeared normal. ASSESSMENT: 1. Anastomotic ulcer with clean crater without any signs of bleeding. 2. Otherwise, normal postoperative gastrojejunostomy bypass finding. RECOMMENDATIONS: 1. We will change PPI to pantoprazole 40 mg p.o. b.i.d. 2. Advance diet, can discharge if tolerates diet and pain improves. Job ID: [id number]
[2020-10-22 12:41] VITALS: BP 112/79; TEMP 98.2
== END 2020-10-22 12:40 | disposition home or self-care (01) ==
LOC: ERS 13:21 → T4-B 15:06
PROVIDERS: ADMIT Specialist; ATTEND Specialist
PROC: 0DJ08ZZ Inspection of Upper Intestinal Tract, Via Natural or Artificial Opening Endoscopic (ICD-10-PCS; principal; 2020-10-22)
DX: K25.4 Chronic or unspecified gastric ulcer with hemorrhage (principal); K21.9 Gastro-esophageal reflux disease without esophagitis; K58.1 Irritable bowel syndrome with constipation; F43.10 Post-traumatic stress disorder, unspecified; F41.9 Anxiety disorder, unspecified; F31.9 Bipolar disorder, unspecified; F98.8 Other specified behavioral and emotional disorders with onset usually occurring in childhood and adolescence; I47.1 Supraventricular tachycardia; J45.909 Unspecified asthma, uncomplicated; G43.909 Migraine, unspecified, not intractable, without status migrainosus; Z79.899 Other long term (current) drug therapy; Z88.1 Allergy status to other antibiotic agents; Z88.8 Allergy status to other drugs, medicaments and biological substances; Z91.048 Other nonmedicinal substance allergy status; Z91.5 Personal history of self-harm; Z95.0 Presence of cardiac pacemaker; Z20.822 Contact with and (suspected) exposure to COVID-19
CPT/HCPCS: 36415; 80048; 80053; 82270; 84703; 85025; 85610; 85730; 86850; 86900; 86901; 87635; 94760; 96365; 96375; 96376; C9113; G0378; J2704; J3010; J3490; U0003; U0005

== ENCOUNTER 2021-05-19 23:55 | Inpatient (IN) | payer BC ==
[2021-05-20] MEDS ORDERED: Fentanyl CADD 100 ML IV SCH (00:15)
[2021-05-20 00:18] LABS: #Basophils 0.1 thou/uL (0.0-0.2); #Eosinphils 0.3 thou/uL (0.0-0.7); #Monocytes 0.7 thou/uL (0.11-0.59); #Neutrophils 6.8 thou/uL (1.40-6.50); %Basophils 0.9 % (0.0-1.0); %Eosinophils 2.6 % (0.0-10.0); %Lymphocytes 33.4 % (21.0-51.0); %Monocytes 5.9 % (0.0-10.0); %Neutrophils 57.2 % (42.0-75.0); Mean Corpuscular HGB CONC 33.2 g/dL (32.0-36.0); Mean Corpuscular Volume 87.5 fL (78.0-98.0); Platelet Count 230 thou/uL (130-400); RBC Distribution Width 12.2 % (11.5-14.5)
[2021-05-20 00:23] LABS: BHCG - Serum Negative (NEGATIVE); Pregs Control Background? CLEAR/WHITE (CLR/WHITE); Pregs Control Bar Appear? YES (CONTROL BAR)
[2021-05-20 00:30] LABS: INR-International Normal Ratio 1.2; PTT 27.3 sec (22.9-36.1)
[2021-05-20 00:31] LABS: Acetaminophen Less than 6.0 mcg/mL (10.0-30.0); Alcohol Less than 10 mg/dL (Less than 10); Salicylate Less than 8.0 mg/dL (15.0-30.0)
[2021-05-20 00:32] LABS: ALT (SGPT) 28 U/L (8-55); AST (SGOT) 42 U/L (5-34); Albumin 3.3 g/dL (3.5-5.0); Alkaline Phosphatase 66 U/L (40-110); Anion Gap 15 mmol/L (10-20); BUN (Urea Nitrogen) 20 mg/dL (7.0-18.7); Bilirubin, Total 0.2 mg/dL (0.2-1.2); Calc. Creatinine Clearance 0 mL/min (70-130); Calcium 7.7 mg/dL (7.8-10.44); Carbon Dioxide 16 mmol/L (22-29); Chloride 108 mmol/L (98-107); Globulin 2.6 g/dL (2.4-3.5); Glucose 199 mg/dL (70-105); Potassium 3.7 mmol/L (3.5-5.1); Protein, Total 5.9 g/dL (6.0-8.3); Sodium 135 mmol/L (136-145)
[2021-05-20 00:35] LABS: Amphetamine Not Detected (NotDetected); Barbiturates Screen Not Detected (NotDetected); Benzodiazepine Screen Detected (NotDetected); Cocaine Metabolite Screen Not Detected (NotDetected); Methadone Not Detected (NotDetected); Methamphetamine Not Detected (NotDetected); Opiate Screen Not Detected (NotDetected); Oxycodone Screen Not Detected (NotDetected); Phencyclidine (PCP) Not Detected (NotDetected); THC/Cannabinoid Screen Not Detected (NotDetected); Tricyclic Screen Detected (NotDetected)
[2021-05-20 00:46] LABS: Analyzer IN Cardio ER; CO2 Tension 33.1 mmHg (35.0-45.0); Calcium, Ionized (arterial) 1.07 mmol/L (1.12-1.30); Carboxyhemoglobin (COHb) 0.3 gm% (0.0-3.0); Hemoglobin (Hb) 11.7 g/dL (12.0-16.0); O2 Tension (PaO2), arterial 151.8 mmHg (80.0-100.0); Potassium - ABG Lab 4.01 mmol/L (3.70-5.30)
[2021-05-20 00:48] LABS: ALV-art Gradient 519.825 mmHg (0-20); Puncture Site LRA
[2021-05-20 01:42] LABS: SARS-CoV-2 NAA Rapid Test Not Detected (NotDetected)
[2021-05-20] MEDS ORDERED: Ondansetron PF 4 MG/2 ML Vial IVP PRN (02:00)
[2021-05-20] MEDS ORDERED: Propofol BOLUS 1,000 MG/100 ML VIAL IV PRN (02:45)
[2021-05-20] MEDS ORDERED: Morphine 2 MG/ML VIAL SLOW IVP PRN (02:45)
[2021-05-20] MEDS ORDERED: DISCONTINUE PREVIOUS NARCOTIC PAIN MEDICATIONS AND BENZODIAZEPINES FS SCH (02:45)
[2021-05-20] MEDS ORDERED: Fentanyl BOLUS 250 ML IVPB PRN (02:45)
[2021-05-20] MEDS ORDERED: Lorazepam 2 MG/ML VIAL SLOW IVP PRN (02:45)
[2021-05-20] MEDS ORDERED: Propofol 1,000 MG/100 ML VIAL IV PRN (02:45)
[2021-05-20] MEDS ORDERED: Norepinephrine 8 MG/0.9% NS 250 ML ONE (03:16)
[2021-05-20] MEDS ORDERED: Norepinephrine 8 MG/0.9% NS 250 ML IVPB SCH (03:30)
[2021-05-20 04:06] LABS: #Lymphocytes 1.1 thou/uL (1.20-3.40); #Monocytes 0.4 thou/uL (0.11-0.59); #Neutrophils 8.8 thou/uL (1.40-6.50); %Eosinophils 0.3 % (0.0-10.0); %Lymphocytes 10.6 % (21.0-51.0); %Neutrophils 85.1 % (42.0-75.0); Hemoglobin 11.7 g/dL (12.0-16.0); Mean Corpuscular HGB CONC 33.2 g/dL (32.0-36.0); Mean Corpuscular Hemoglobin 29.1 pg (27.0-31.0); Mean Corpuscular Volume 87.9 fL (78.0-98.0); Mean Platelet Volume 8.2 fL (7.4-10.4); Platelet Count 199 thou/uL (130-400); Red Blood Cell (RBC) Count 4.03 mill/uL (4.20-5.40); White Blood Cell (WBC) Count 10.3 thou/uL (4.8-10.8)
[2021-05-20 04:28] LABS: ALT (SGPT) 27 U/L (8-55); AST (SGOT) 40 U/L (5-34); Albumin 3.2 g/dL (3.5-5.0); Alkaline Phosphatase 68 U/L (40-110); Anion Gap 13 mmol/L (10-20); BUN (Urea Nitrogen) 18 mg/dL (7.0-18.7); Bilirubin, Total 0.2 mg/dL (0.2-1.2); Calc. Creatinine Clearance 0 mL/min (70-130); Calcium 7.7 mg/dL (7.8-10.44); Carbon Dioxide 19 mmol/L (22-29); Chloride 109 mmol/L (98-107); Globulin 2.5 g/dL (2.4-3.5); Glucose 178 mg/dL (70-105); Potassium 5.1 mmol/L (3.5-5.1); Protein, Total 5.7 g/dL (6.0-8.3); Sodium 136 mmol/L (136-145)
[2021-05-20] MEDS: Lactated Ringer's 1,000 ML IV SCH ×4 (06:31→22:59)
[2021-05-20 08:27] LABS: Base Excess (BEa) -4.5 mEq/L (-2.0 to +3.0); Calcium, Ionized (arterial) 1.09 mmol/L (1.12-1.30); Carboxyhemoglobin (COHb) 0.3 gm% (0.0-3.0); Hemoglobin (Hb) 11.8 g/dL (12.0-16.0); O2 Tension (PaO2), arterial 86.7 mmHg (80.0-100.0); Potassium - ABG Lab 4.48 mmol/L (3.70-5.30); pH, Arterial 7.38 (7.35-7.45)
[2021-05-20 08:29] LABS: Puncture Site RRA
[2021-05-20] MEDS ORDERED: Iopamidol 370 76% 100 ML VIAL ONE (09:48)
[2021-05-20] MEDS: Famotidine/PF 20 mg/2ml Vial SLOW IVP SCH ×2 (09:53→21:38)
[2021-05-21] MEDS: Lactated Ringer's 1,000 ML IV SCH ×3 (02:21→17:27)
[2021-05-21] MEDS ORDERED: Lidocaine 2% Jelly 5 ML TUBE TOP PRN (06:23)
[2021-05-21] MEDS: Cepastat Lozenges 1 LOZ PO PRN ×2 (06:55→22:15)
[2021-05-21] MEDS: Aripiprazole 10 MG TAB PO SCH (09:16)
[2021-05-21] MEDS: Bupropion 150 MG XL TAB PO SCH (09:22)
[2021-05-21] MEDS: Melatonin 3 MG TAB PO SCH (21:49)
[2021-05-22] MEDS: Lactated Ringer's 1,000 ML IV SCH (02:16)
[2021-05-22] MEDS: Cepastat Lozenges 1 LOZ PO PRN ×2 (02:43→06:29)
[2021-05-22] MEDS: Acetaminophen 500 MG TAB PO PRN ×3 (06:32→19:41)
[2021-05-22] MEDS ORDERED: Chloraseptic Spray 180 ml Bottle PO PRN (07:58)
[2021-05-22] MEDS: Aripiprazole 10 MG TAB PO SCH (09:47)
[2021-05-22] MEDS: Bupropion 150 MG XL TAB PO SCH (09:55)
[2021-05-22 14:10] VITALS: BMI 25.0
[2021-05-22 17:42] LABS: SARS-CoV-2 NAA Rapid Test Not Detected (NotDetected)
[2021-05-22] MEDS: Melatonin 3 MG TAB PO SCH (19:45)
[2021-05-23] MEDS: Acetaminophen 500 MG TAB PO PRN ×4 (01:23→16:10)
[2021-05-23 06:37] LABS: #Eosinphils 0.3 thou/uL (0.0-0.7); #Lymphocytes 0.9 thou/uL (1.20-3.40); #Monocytes 0.7 thou/uL (0.11-0.59); #Neutrophils 6.9 thou/uL (1.40-6.50); %Basophils 0.1 % (0.0-1.0); %Eosinophils 3.8 % (0.0-10.0); %Lymphocytes 10.5 % (21.0-51.0); %Monocytes 7.3 % (0.0-10.0); %Neutrophils 78.3 % (42.0-75.0); Hemoglobin 10.4 g/dL (12.0-16.0); Mean Corpuscular HGB CONC 33.9 g/dL (32.0-36.0); Mean Corpuscular Hemoglobin 29.3 pg (27.0-31.0); Mean Corpuscular Volume 86.2 fL (78.0-98.0); Mean Platelet Volume 8.5 fL (7.4-10.4); Platelet Count 189 thou/uL (130-400); Red Blood Cell (RBC) Count 3.56 mill/uL (4.20-5.40); White Blood Cell (WBC) Count 8.8 thou/uL (4.8-10.8)
[2021-05-23] MEDS: Aripiprazole 10 MG TAB PO SCH (09:30)
[2021-05-23] MEDS: Bupropion 150 MG XL TAB PO SCH (09:30)
[2021-05-23 17:32] VITALS: BP 110/81; TEMP 98
[2021-05-24] MEDS ORDERED: FLUoxetine HCl 20 MG CAP PO SCH (09:00)
== END 2021-05-23 18:52 | DRG 922 ==
LOC: ERS 23:55 → ERHOLD 05-20 01:47 → CCU 05-20 02:22 → SJJU 05-20 18:35
PROVIDERS: ADMIT Specialist; ATTEND Specialist
PROC: 5A1935Z Respiratory Ventilation, Less than 24 Consecutive Hours (ICD-10-PCS; principal; 2021-05-20)
PROC: 0D9670Z Drainage of Stomach with Drainage Device, Via Natural or Artificial Opening (ICD-10-PCS; 2021-05-20)
PROC: 3E033XZ Introduction of Vasopressor into Peripheral Vein, Percutaneous Approach (ICD-10-PCS; 2021-05-20)
DX: T71.162A Asphyxiation due to hanging, intentional self-harm, initial encounter (principal); J69.0 Pneumonitis due to inhalation of food and vomit; F31.9 Bipolar disorder, unspecified; Z20.822 Contact with and (suspected) exposure to COVID-19; G40.909 Epilepsy, unspecified, not intractable, without status epilepticus; K21.9 Gastro-esophageal reflux disease without esophagitis; G43.809 Other migraine, not intractable, without status migrainosus; F43.10 Post-traumatic stress disorder, unspecified; K58.9 Irritable bowel syndrome, unspecified; R06.03 Acute respiratory distress; F98.8 Other specified behavioral and emotional disorders with onset usually occurring in childhood and adolescence; Z78.1 Physical restraint status; Z95.818 Presence of other cardiac implants and grafts; Z98.84 Bariatric surgery status; Z79.899 Other long term (current) drug therapy; Z95.0 Presence of cardiac pacemaker; Z90.49 Acquired absence of other specified parts of digestive tract; Z88.1 Allergy status to other antibiotic agents; Z88.8 Allergy status to other drugs, medicaments and biological substances; Z91.09 Other allergy status, other than to drugs and biological substances; Z91.5 Personal history of self-harm; X83.8XXA Intentional self-harm by other specified means, initial encounter; Z98.890 Other specified postprocedural states
CPT/HCPCS: 0240U; 36415; 36600; 51702; 70450; 70498; 71045; 71046; 72125; 80053; 80306; 80307; 82533; 82805; 84443; 84703; 85025; 85610; 85730; 87040; 93005; 93010; 94002; 94003; 95816; 95819; 95957; 96365; J2060; J2270; J3010; J7120; J7620; Q9967; S0028; U0002

== ENCOUNTER 2022-01-19 23:23 | Inpatient (IN) | payer BC, SELFPAY ==
[2022-01-20 00:49] LABS: #Basophils 0.1 thou/uL (0.0-0.2); #Eosinphils 0.4 thou/uL (0.0-0.7); #Monocytes 0.6 thou/uL (0.11-0.59); #Neutrophils 4.4 thou/uL (1.40-6.50); %Basophils 0.7 % (0.0-1.0); %Eosinophils 5.4 % (0.0-10.0); %Lymphocytes 26.6 % (21.0-51.0); %Monocytes 8.3 % (0.0-10.0); Hemoglobin 12.4 g/dL (12.0-16.0); Mean Corpuscular HGB CONC 32.7 g/dL (32.0-36.0); Mean Corpuscular Hemoglobin 27.8 pg (27.0-31.0); Mean Platelet Volume 8.1 fL (7.4-10.4); Platelet Count 210 thou/uL (130-400); Red Blood Cell (RBC) Count 4.45 mill/uL (4.20-5.40); White Blood Cell (WBC) Count 7.4 thou/uL (4.8-10.8)
[2022-01-20 00:55] LABS: BHCG - Serum Negative (NEGATIVE); Pregs Control Background? CLEAR/WHITE (CLR/WHITE); Pregs Control Bar Appear? YES (CONTROL BAR)
[2022-01-20 01:10] LABS: ALT (SGPT) 11 U/L (8-55); AST (SGOT) 18 U/L (5-34); Albumin 4.1 g/dL (3.5-5.0); Alkaline Phosphatase 76 U/L (40-110); Anion Gap 14 mmol/L (10-20); BUN (Urea Nitrogen) 17 mg/dL (7.0-18.7); Bilirubin, Total 0.3 mg/dL (0.2-1.2); CK (CPK) 79 U/L (29-168); Calc. Creatinine Clearance 0 mL/min (70-130); Calcium 9.1 mg/dL (7.8-10.44); Carbon Dioxide 23 mmol/L (22-29); Chloride 106 mmol/L (98-107); Globulin 2.8 g/dL (2.4-3.5); Glucose 73 mg/dL (70-105); Potassium 3.6 mmol/L (3.5-5.1); Protein, Total 6.9 g/dL (6.0-8.3); Sodium 139 mmol/L (136-145)
[2022-01-20 01:11] LABS: Acetaminophen Less than 10.0 mcg/mL (10.0-30.0); Alcohol Less than 10 mg/dL (Less than 10); Magnesium 2.2 mg/dL (1.6-2.6); Salicylate Less than 8.0 mg/dL (15.0-30.0)
[2022-01-20] MEDS ORDERED: Ondansetron PF 4 MG/2 ML Vial IVP PRN (02:27)
[2022-01-20 03:05] LABS: Bilirubin Negative (Negative); Blood, Urine Negative (Negative); Clarity Clear (Clear); Glucose, Urine (Dipstick) Normal (Negative); Ketone, Urine Negative (Negative); Leukocyte Negative Leu/uL (Negative); Nitrite Negative (Negative); Protein, Urine (Dipstick) Negative (Neg-Trace); Specific Gravity, Urine 1.012 (1.002-1.036); Urobilinogen Normal mg/dL (Less than 2); pH, Urine 5.5 (5.0-9.0)
[2022-01-20 03:14] LABS: Amphetamine Detected (NotDetected); Barbiturates Screen Not Detected (NotDetected); Benzodiazepine Screen Detected (NotDetected); Cocaine Metabolite Screen Not Detected (NotDetected); Methadone Not Detected (NotDetected); Methamphetamine Not Detected (NotDetected); Opiate Screen Not Detected (NotDetected); Oxycodone Screen Not Detected (NotDetected); Phencyclidine (PCP) Not Detected (NotDetected); THC/Cannabinoid Screen Not Detected (NotDetected); Tricyclic Screen Not Detected (NotDetected)
[2022-01-20] MEDS: Sodium Chloride 0.9% 1,000 ML IV SCH ×2 (04:45→20:07)
[2022-01-20 06:22] LABS: #Eosinphils 0.4 thou/uL (0.0-0.7); #Lymphocytes 2.5 thou/uL (1.20-3.40); #Monocytes 0.4 thou/uL (0.11-0.59); #Neutrophils 2.9 thou/uL (1.40-6.50); %Basophils 0.3 % (0.0-1.0); %Eosinophils 6.8 % (0.0-10.0); %Lymphocytes 40.1 % (21.0-51.0); %Monocytes 6.7 % (0.0-10.0); Hemoglobin 11.4 g/dL (12.0-16.0); Mean Corpuscular HGB CONC 31.4 g/dL (32.0-36.0); Mean Corpuscular Hemoglobin 26.6 pg (27.0-31.0); Mean Corpuscular Volume 84.7 fL (78.0-98.0); Mean Platelet Volume 7.9 fL (7.4-10.4); Platelet Count 184 thou/uL (130-400); RBC Distribution Width 14.9 % (11.5-14.5); Red Blood Cell (RBC) Count 4.27 mill/uL (4.20-5.40); White Blood Cell (WBC) Count 6.2 thou/uL (4.8-10.8)
[2022-01-20 06:43] LABS: Anion Gap 9 mmol/L (10-20); BUN (Urea Nitrogen) 13 mg/dL (7.0-18.7); Calc. Creatinine Clearance 109 mL/min (70-130); Calcium 8.2 mg/dL (7.8-10.44); Carbon Dioxide 23 mmol/L (22-29); Chloride 109 mmol/L (98-107); Glucose 79 mg/dL (70-105); Magnesium 1.9 mg/dL (1.6-2.6); Potassium 3.7 mmol/L (3.5-5.1); Sodium 137 mmol/L (136-145)
[2022-01-20] MEDS ORDERED: Potassium Chloride 40 MEQ in Sodium Chloride 0.9% 250 ML 250 ML IVPB SCH (08:00)
[2022-01-20] MEDS: Enoxaparin Sodium 40 MG/0.4 ML SYRINGE SC SCH (08:10)
[2022-01-20 12:03] LABS: SARS-CoV-2 PCR by NAA Not Detected (NotDetected)
[2022-01-20] MEDS: Acetaminophen 325 MG TAB PO PRN (13:15)
[2022-01-21] MEDS: Sodium Chloride 0.9% 1,000 ML IV SCH ×2 (02:05→14:16)
[2022-01-21 03:42] LABS: Hemoglobin 12.1 g/dL (12.0-16.0); Mean Corpuscular HGB CONC 31.8 g/dL (32.0-36.0); Mean Corpuscular Volume 84.7 fL (78.0-98.0); Mean Platelet Volume 8.2 fL (7.4-10.4); Platelet Count 202 thou/uL (130-400); RBC Distribution Width 15.1 % (11.5-14.5); Red Blood Cell (RBC) Count 4.49 mill/uL (4.20-5.40); White Blood Cell (WBC) Count 5.5 thou/uL (4.8-10.8)
[2022-01-21 04:01] LABS: ALT (SGPT) 9 U/L (8-55); AST (SGOT) 16 U/L (5-34); Albumin 3.4 g/dL (3.5-5.0); Alkaline Phosphatase 85 U/L (40-110); Anion Gap 13 mmol/L (10-20); BUN (Urea Nitrogen) 11 mg/dL (7.0-18.7); Bilirubin, Total 0.2 mg/dL (0.2-1.2); Calc. Creatinine Clearance 130 mL/min (70-130); Calcium 8.1 mg/dL (7.8-10.44); Carbon Dioxide 19 mmol/L (22-29); Chloride 109 mmol/L (98-107); Globulin 2.6 g/dL (2.4-3.5); Glucose 95 mg/dL (70-105); Magnesium 2.2 mg/dL (1.6-2.6); Potassium 4.1 mmol/L (3.5-5.1); Sodium 137 mmol/L (136-145)
[2022-01-21] MEDS: Enoxaparin Sodium 40 MG/0.4 ML SYRINGE SC SCH (08:21)
[2022-01-21 08:44] VITALS: BMI 26.7
[2022-01-21] MEDS: Ivabradine 5 MG TAB PO SCH (20:18)
[2022-01-21] MEDS: Lactated Ringer's 1,000 ML IV SCH (21:56)
[2022-01-21] MEDS ORDERED: Polyethylene Glycol 3350 17 GM Packet PO SCH (23:30)
[2022-01-22] MEDS: Acetaminophen 325 MG TAB PO PRN (02:57)
[2022-01-22 06:08] LABS: Anion Gap 10 mmol/L (10-20); BUN (Urea Nitrogen) 13 mg/dL (7.0-18.7); Calc. Creatinine Clearance 119 mL/min (70-130); Calcium 8.4 mg/dL (7.8-10.44); Carbon Dioxide 24 mmol/L (22-29); Chloride 107 mmol/L (98-107); Glucose 100 mg/dL (70-105); Sodium 137 mmol/L (136-145)
[2022-01-22] MEDS: Lactated Ringer's 1,000 ML IV SCH (08:17)
[2022-01-22] MEDS: Enoxaparin Sodium 40 MG/0.4 ML SYRINGE SC SCH (08:19)
[2022-01-22] MEDS: Ivabradine 5 MG TAB PO SCH (08:19)
[2022-01-22 08:25] VITALS: BP 120/86
[2022-01-22] MEDS ORDERED: [UNRECOGNIZED DRUG - OTHER] PO SCH (09:00)
[2022-01-22] MEDS ORDERED: Loratadine 10 MG TAB PO SCH (09:00)
[2022-01-22] MEDS ORDERED: Linaclotide [Linzess] 145 MCG Capsule PO SCH (09:00)
[2022-01-22 09:57] VITALS: TEMP 99
== END 2022-01-22 09:38 | disposition home or self-care (01) | DRG 917 ==
LOC: ERS 23:23 → CCU 01-20 02:23 → IMCU/EMU 01-20 14:22 → T4-A 01-21 11:49
PROVIDERS: ADMIT Internal Medicine; ATTEND Internal Medicine
DX: T48.1X2A Poisoning by skeletal muscle relaxants [neuromuscular blocking agents], intentional self-harm, initial encounter (principal); G92.9 Unspecified toxic encephalopathy; R45.851 Suicidal ideations; T42.4X2A Poisoning by benzodiazepines, intentional self-harm, initial encounter; T43.592A Poisoning by other antipsychotics and neuroleptics, intentional self-harm, initial encounter; T44.6X2A Poisoning by alpha-adrenoreceptor antagonists, intentional self-harm, initial encounter; T43.612A Poisoning by caffeine, intentional self-harm, initial encounter; T40.422A Poisoning by tramadol, intentional self-harm, initial encounter; K21.9 Gastro-esophageal reflux disease without esophagitis; G47.419 Narcolepsy without cataplexy; J45.909 Unspecified asthma, uncomplicated; F41.9 Anxiety disorder, unspecified; F43.10 Post-traumatic stress disorder, unspecified; F31.9 Bipolar disorder, unspecified; G40.909 Epilepsy, unspecified, not intractable, without status epilepticus; Z20.822 Contact with and (suspected) exposure to COVID-19; Z90.49 Acquired absence of other specified parts of digestive tract; Z95.0 Presence of cardiac pacemaker; Z88.1 Allergy status to other antibiotic agents; Z88.8 Allergy status to other drugs, medicaments and biological substances; Z79.899 Other long term (current) drug therapy; Y92.9 Unspecified place or not applicable
CPT/HCPCS: 36415; 36416; 80048; 80053; 80306; 80307; 81003; 82550; 83735; 84703; 85025; 85027; 93005; 93010; 99285; J1650; J3475; J3480; J3490; J7050; J7120; U0003; U0005

== ENCOUNTER 2022-07-30 19:30 | Outpatient (CLI) | payer BC | END 2022-07-30 19:31 | disposition home or self-care (01) | LOC: SLEEPLAB 19:30 | PROVIDERS: ATTEND Psychiatry & Neurology Neurology | DX: G47.33 Obstructive sleep apnea (adult) (pediatric) (principal); G47.419 Narcolepsy without cataplexy; R53.83 Other fatigue; R40.0 Somnolence; F32.A Depression, unspecified; F41.9 Anxiety disorder, unspecified; G47.10 Hypersomnia, unspecified | CPT/HCPCS: 95810 ==

== ENCOUNTER 2022-08-13 18:29 | Emergency (ER) | payer BC ==
[~2022-08-13 18:29] MED LIST changes: +GASTROGRAFIN 30 ML BOT ONE
[2022-08-13 19:06] LABS: #Eosinphils 0.3 thou/uL (0.0-0.7); #Lymphocytes 0.8 thou/uL (1.20-3.40); #Monocytes 0.4 thou/uL (0.11-0.59); #Neutrophils 5.6 thou/uL (1.40-6.50); %Basophils 0.1 % (0.0-1.0); %Eosinophils 3.8 % (0.0-10.0); %Lymphocytes 11.7 % (21.0-51.0); %Monocytes 5.5 % (0.0-10.0); Hemoglobin 13.4 g/dL (12.0-16.0); Mean Corpuscular HGB CONC 31.6 g/dL (32.0-36.0); Mean Corpuscular Hemoglobin 28.8 pg (27.0-31.0); Mean Corpuscular Volume 91.2 fl (78.0-98.0); Mean Platelet Volume 7.9 fL (7.4-10.4); Platelet Count 203 10x3/uL (130-400); RBC Distribution Width 12.3 % (11.5-14.5); Red Blood Cell (RBC) Count 4.64 mill/uL (4.20-5.40)
[2022-08-13 19:27] LABS: ALT (SGPT) 10 U/L (8-55); AST (SGOT) 15 U/L (5-34); Albumin 4.1 g/dL (3.5-5.0); Alkaline Phosphatase 98 U/L (40-110); Anion Gap 11 mmol/L (10-20); BUN (Urea Nitrogen) 16 mg/dL (7.0-18.7); Bilirubin, Total 0.7 mg/dL (0.2-1.2); Calc. Creatinine Clearance 0 mL/min (70-130); Calcium 9.1 mg/dL (7.8-10.44); Carbon Dioxide 24 mmol/L (22-29); Chloride 105 mmol/L (98-107); Estimated GFR 113; Globulin 2.7 g/dL (2.4-3.5); Glucose 94 mg/dL (70-105); Lipase 26 U/L (8-78); Potassium 4.1 mmol/L (3.5-5.1); Protein, Total 6.8 g/dL (6.0-8.3); Sodium 136 mmol/L (136-145)
[2022-08-13] MEDS ORDERED: Promethazine HCl 12.5 MG in Sodium Chloride 0.9% 50 ML IVPB SCH (19:45)
[2022-08-13 20:49] LABS: BHCG - Serum Negative (NEGATIVE); Pregs Control Background? CLEAR/WHITE (CLR/WHITE); Pregs Control Bar Appear? YES (CONTROL BAR)
[2022-08-13 21:06] LABS: Bilirubin Negative (Negative); Blood, Urine Negative (Negative); Clarity Clear (Clear); Glucose, Urine (Dipstick) Normal (Negative); Ketone, Urine Negative (Negative); Leukocyte Negative Leu/uL (Negative); Nitrite Negative (Negative); Protein, Urine (Dipstick) 20 mg/dL (Neg-Trace); Specific Gravity, Urine 1.032 (1.002-1.036); Urobilinogen Normal mg/dL (Less than 2); pH, Urine 5.5 (5.0-9.0)
[2022-08-13 21:07] LABS: Pregnancy Test - Urine (BHCG) Negative (Negative); Pregu Control Background? CLEAR/WHITE (CLR/WHITE); Pregu Control Bar Appear? YES (CONTROL BAR); Specific Gravity 1.032 (1.002-1.036)
== END 2022-08-13 22:03 | disposition home or self-care (01) ==
LOC: ERS 18:29
DX: A08.4 Viral intestinal infection, unspecified (principal)
CPT/HCPCS: 36415; 71045; 74177; 80053; 81003; 81025; 83690; 83880; 84484; 84703; 85025; 85379; 93005; 94760; 96374; J2550; Q9963; Q9967

== ENCOUNTER 2022-09-07 07:49 | Outpatient (CLI) | payer BC | END 2022-09-07 07:50 | disposition home or self-care (01) | LOC: NM 07:49 | PROVIDERS: ATTEND Physician Assistant Medical | DX: Z98.84 Bariatric surgery status (principal); R19.7 Diarrhea, unspecified; K21.9 Gastro-esophageal reflux disease without esophagitis | CPT/HCPCS: 78264; A9541 ==